=== PATIENT | female | born 1975 | race Caucasian/White ===

== ENCOUNTER 2023-06-02 03:00 | Inpatient (IN) | payer MEDICARE, SELFPAY ==
[2023-06-01 23:35] VITALS: BP 108/75
[2023-06-01 23:50] VITALS: BP 115/67
[2023-06-01 23:52] VITALS: BMI 33.9
[2023-06-02] VITALS (8 sets, daily range): BP systolic 97–158; BP diastolic 63–98; BMI 32.7
[2023-06-02 00:27] LABS: Glucose - Point of Care 120 mg/dl (70-99)
--- NOTE | 2023-06-02 00:37 | ED.GENMED ---
Addendum entered and electronically signed by Jamir Awad DO 06/02/23 02:14:
Will check CT scan to rule out obstruction and hydronephrosis
Original Note:
History of Present Illness
General
Chief Complaint: Weakness
Source: patient and family
Exam Limitations: clinical condition and altered mental status
Time Seen by Provider: 06/01/23 23:50
Nursing documentation reviewed up to this point in time: agreed with
Travel History
Have you had any contact with someone who has COVID-19?: No
Do you have any symptoms of coronavirus? Fever > 100 degrees, chills, cough, shortness of breath, sore throat, loss of taste or smell, muscle aches, or headache?: No
History of Present Illness
History of Present Illness:
48-year-old female with mental illness presents with progressive weakness decline in physical functioning, also decline in mental functioning, family states she has been lying in bed a lot recently, when she gets up she walks around like a zombie,
she sees a psychiatrist through telemetry visits through [facility] has been making adjustments to her medications
No drugs or alcohol, no potential for overdose per the family has been admitted to mental health facilities in the past year parents are elderly, patient lives with her parents sister is very involved in her care
Tonight she was complaining of some weakness fatigue to get her up give her a bath or to thump fell on her buttock in the shower
Has been drinking a lot of fluids lately family wonder if she could be diabetic
Past History
Past History
ED Past Medical History: Psychiatric and Other (anxiety)
ED Past Surgical History: None
Social History
Tobacco: Non-smoker
Alcohol: None
Drug: None
Personal: Single
Living: with family
Employment: Not employed
Family History
Family History: Diabetes
Phy Exam
Physical Exam
Physical Exam:
Physical Exam
General: 48-year-old female flat affect opens eyes to voice
Neck: Lips are slightly dry
Heart: Tachycardia
Lungs: no acute respiratory distress. clear bilaterally
Abdomen: Nontender
Neuro: alert and oriented. Lifts her arms above her head without difficulty able to lift her legs off the bed
Skin: no rash
Psychiatric: Flat affect cooperative not aggressive
Extremities: no edema
Course
Orders/Labs/Results
Orders:
Orders
06/01/23 23:53
Acetaminophen Urgent
Alcohol Urgent
Complete Blood Count/With Diff Urgent
Comprehensive Metabolic Panel Urgent
HCG, Serum Qualitative Screen Urgent
Salicylate Urgent
Urinalysis Reflex To Culture Urgent
Date Specimen was Collected: 06/01/23
Time Specimen was Collected: 23:53
Urine Drug Abuse Screen Urgent
Date Specimen was Collected: 06/01/23
Time Specimen was Collected: 23:53
Test Result ONCE
06/01/23 23:54
Electrocardiogram (*1) Urgent
Reason for Study: Tachycardia
EKG- Treatment ONCE
06/02/23 00:22
CT Cervical Spine W/o Iv Contr Urgent
Comment:
Reason For Exam: fall
CT Head W/o Iv Contrast Urgent
Comment:
Reason For Exam: fall
Cardiac Monitoring- Treatment ONCE
06/02/23 00:23
Straight cath- Treatment ONCE
06/02/23 00:26
CPK [Creatine Phosphokinase] Urgent
06/02/23 00:27
Ammonia Urgent
06/02/23 01:25
Urine Microscopic Reflex Cult Urgent
Urine Culture Urgent
ENE Source: U
Specimen Description:
Date Specimen was Collected: 06/01/23
Time Specimen was Collected: 23:53
06/02/23 01:52
CefTRIAXone [Rocephin] 1,000 mg IV NOW STA
06/02/23 02:00
Blood Culture Q30M
ENE Source: Blood/Venous
Specimen Description:
06/02/23 02:30
Blood Culture Q30M
ENE Source: Blood/Venous
Specimen Description:
Abnormal Lab Results
06/02/23 06/02/23 06/02/23
00:26 00:27 01:25
WBC 21.6 H 10^3/uL
(4.8-10.8)
Abs Immat Gran (auto) 0.4 H 10^3/uL
(0-0.05)
Absolute Neuts (auto) 17.7 H 10^3/uL
(1.4-6.5)
Absolute Monos (auto) 1.3 H 10^3/uL
(0.1-0.6)
Immature Gran % 1.6 H %
(0-0.5)
Neutrophils % 82.3 H %
(42.2-75.2)
Lymphocytes % 9.1 L %
(20.5-51.1)
Sodium 133 L mmol/L
(135-145)
Carbon Dioxide 19 L mmol/L
(22-30)
Creatinine 1.9 H mg/dL
(0.6-1.0)
Glucose 114 H mg/dl
(70-99)
AST 77 H U/L
(14-36)
Ammonia 33 H umol/L
(9-30)
Creatine Kinase 828 H U/L
(30-135)
Urine Ketones Trace A
(Negative)
Ur Occult Blood Reflex 4+ A
(Negative)
Urine Nitrite (Reflex) Positive A
(Negative)
Leukocyte Esterase Rfl 1+ A
(Negative)
Urine Albumin (Reflex) 2+ A
(Neg - Trace)
Salicylates < 1.0 L mg/dl
(2.0-20.0)
Acetaminophen < 10 L ug/ml
(10-30)
POC Glucose 120 H mg/dl
(70-99)
06/02/23 00:27
06/02/23 00:26
Vital Signs
Initial and Last Documented VS:
Initial Vital Signs
Temp Pulse Resp BP Pulse Ox
98.5 F 139 16 108/75 95
06/01/23 23:35 06/01/23 23:35 06/01/23 23:35 06/01/23 23:35 06/01/23 23:35
Last Documented Vital Signs
Temp Pulse Resp BP Pulse Ox
98.5 F 115 28 115/67 95
06/01/23 23:35 06/02/23 00:00 06/02/23 00:00 06/01/23 23:50 06/02/23 00:00
MDM/Problems Addressed
Differential Diagnosis Includes:
Primary psychiatric, overmedicated, electrolyte abnormality infection UTI occult trauma
MDM/Problems Addressed:
Weakness fatigue
Chronic conditions affecting care:
Mental illness
Acute Exacerbation and/or Progression of Chronic Illness:
Mental illness
*Radiology
Radiology exam reviewed: preliminary read by ED provider
*Pulse Oximetry
Patient hypoxic: no
*EKG
Interpreted by ED Provider?: Yes
Interpretation: abnormal
Comparison EKG: no comparison EKG present
Heart Rate: 110
Rate: tachycardiac
Rhythm: sinus
Ischemia: non-specific ST changes
*Motion Picture Equipment Machinist Interpretation
Rate: tachycardiac
Interpretation: abnormal
Heart Rate: 112
Rhythm: sinus
*Critical Care Note
Total Time (30-74mins, 75-104mins- exclusive of procedures): Not Applicable
Data Reviewed
Review of Other/Old Records Reveals: Labs
Source: patient and family
Patient Management
Social determinants of health affecting care: Living situation and Strong social support
Update Note
Update Note:
1:15 AM labs noted his leukocytosis, elevated creatinine bicarb is down a bit
Has tachycardia, intermittent but worsening fatigue, urinalysis is pending
Progressive mental illness certainly a possibility as her medications concern would be some infectious process
2 AM urinalysis noted culture pending will start ceftriaxone
ED Attending Note
-
Portions of this chart may have been created with voice recognition software.� Occasional wrong word or��sound alike� substitutions may have occurred due to the inherent limitations of voice recognition software.
Discharge Plan
Departure
Patient Disposition: Admit
Date of Disposition: 06/02/23
Time of Disposition: 01:52
Admit to: Med/Surg
Presentation/result/management discussed w/ accepting MD/DO: Hospitalist
Patient with high blood pressure during this ER visit?: No
Condition: Fair
Covid-19: Not Applicable
Discharge Problem:
UTI (urinary tract infection), RAYMUNDO (acute kidney injury), Leukocytosis
Prescriptions:
No Action
trazodone 50 mg tablet
50 mg PO HS
levonorgestrel-ethinyl estrad [Vienva] 0.1-20 mg-mcg tablet
1 tab PO DAILY
hydroxyzine HCl 25 mg tablet
25 - 50 mg PO BID PRN (Reason: anxiety)
paroxetine HCl 40 mg tablet
20 mg PO BID
buspirone 10 mg Tablet
10 mg PO TID
risperidone 1 mg Tablet
1 mg PO DAILY
Rx Instructions:
1 in the morning
risperidone 1 mg Tablet
1 mg PO DAILY
Rx Instructions:
1 in the afternoon
risperidone 1 mg Tablet
2 mg PO HS
Referrals:
NONE,* [Family Provider] -
Interventions
Interventions:
*Risk Screen - Suicide Last Done: 06/01/23 23:35
*General Assessment Last Done: 06/02/23 00:22
*Neglect/Abuse Screening Last Done: 06/01/23 23:35
*ED COVID-19 Vaccine History Last Done: 06/01/23 23:35
ED- Cardiac Assessment Last Done: 06/02/23 00:22
ED- Neurological Assessment Last Done: 06/02/23 00:22
ED- Pulmonary Assessment Last Done: 06/02/23 00:22
[2023-06-02 00:49] LABS: % Basophils 0.6 % (0-2); % Eosinophils 0.2 % (0-6); % Immature Granulocytes 1.6 % (0-0.5); % Lymphocytes 9.1 % (20.5-51.1); % Monocytes 6.2 % (1.7-9.3); % Neutrophils 82.3 % (42.2-75.2); Absolute Basophils 0.1 10^3/uL (0-0.2); Absolute Eosinophils 0.1 10^3/uL (0-0.7); Absolute Immature Granulocytes 0.4 10^3/uL (0-0.05); Absolute Monocytes 1.3 10^3/uL (0.1-0.6); Absolute Neutrophils 17.7 10^3/uL (1.4-6.5); Hematocrit 43.9 % (37.0-47.0); Hemoglobin 14.5 g/dL (12.0-16.0); Mean Corpuscular Hgb 28.2 pg (27.0-31.0); Mean Corpuscular Volume 85.2 fL (81.0-99.0); Nucleated Red Blood Cells % 0 %; Platelet Count 318 10^3/uL (130-400); Red Blood Cell Count 5.15 10^6/uL (4.20-5.40); Red Cell Dist. Width 13.4 % (11.5-14.5); White Blood Cell Count 21.6 10^3/uL (4.8-10.8)
[2023-06-02 00:50] LABS: Ammonia 33 umol/L (9-30)
[2023-06-02 01:07] LABS: ALT (SGPT) 34 U/L (0-35); AST (SGOT) 77 U/L (14-36); Acetaminophen < 10 ug/ml (10-30); Albumin 4.5 g/dl (3.5-5.0); Alkaline Phosphatase 70 U/L (38-126); Blood Urea Nitrogen 16 mg/dl (7-17); Calcium 9.8 mg/dl (8.4-10.2); Carbon Dioxide 19 mmol/L (22-30); Chloride 101 mmol/L (98-107); Creatine Phosphokinase 828 U/L (30-135); Estimated Creatinine Clearance 44 ml/min; Glucose 114 mg/dl (70-99); Potassium 3.9 mmol/L (3.5-5.1); Salicylate < 1.0 mg/dl (2.0-20.0); Sodium 133 mmol/L (135-145); Total Bilirubin 1.3 mg/dl (0.2-1.3); Total Protein 7.4 g/dl (6.3-8.2); eGFR 32.37
[2023-06-02 01:13] LABS: HCG, Serum Qualitative Screen Negative
[2023-06-02 01:14] LABS: Alcohol None Detected
[2023-06-02 01:39] LABS: Urine Albumin 2+ (Neg - Trace); Urine Bilirubin Negative (Negative); Urine Character Slightly Cloudy (Clear); Urine Color Yellow; Urine Glucose Negative (Negative); Urine Ketone Trace (Negative); Urine Leukocyte 1+ (Negative); Urine Nitrite Positive (Negative); Urine Occult Blood 4+ (Negative); Urine Specific Gravity 1.025 (<1.030); Urine Urobilinogen Negative (Neg - 1+)
[2023-06-02 01:59] LABS: Urine Red Blood Cell 0-2 /HPF (0-2)
[2023-06-02 02:00] LABS: Amphetamines Negative (Negative); Barbiturates Negative (Negative); Benzodiazepines Negative (Negative); Buprenorphine Negative (Negative); Cocaine Negative (Negative); Marijuana Negative (Negative); Methadone Negative (Negative); Methamphetamines Negative (Negative); Opiates Negative (Negative); Phencyclidine Negative (Negative); Tricyclic Antidepressants Negative (Negative); Urine Bacteria Many (Negative)
--- NOTE | 2023-06-02 02:13 | ED.GENMED ---
History of Present Illness
General
Chief Complaint: Weakness
Time Seen by Provider: 06/01/23 23:50
Travel History
Have you had any contact with someone who has COVID-19?: No
Do you have any symptoms of coronavirus? Fever > 100 degrees, chills, cough, shortness of breath, sore throat, loss of taste or smell, muscle aches, or headache?: No
Past History
Past History
ED Past Medical History: Psychiatric and Other (anxiety)
ED Past Surgical History: None
Social History
Tobacco: Non-smoker
Alcohol: None
Drug: None
Personal: Single
Living: with family
Employment: Not employed
Family History
Family History: Diabetes
Course
Orders/Labs/Results
Orders:
Orders
06/01/23 23:53
Acetaminophen Urgent
Alcohol Urgent
Complete Blood Count/With Diff Urgent
Comprehensive Metabolic Panel Urgent
HCG, Serum Qualitative Screen Urgent
Salicylate Urgent
Urinalysis Reflex To Culture Urgent
Date Specimen was Collected: 06/01/23
Time Specimen was Collected: 23:53
Urine Drug Abuse Screen Urgent
Date Specimen was Collected: 06/01/23
Time Specimen was Collected: 23:53
Test Result ONCE
06/01/23 23:54
Electrocardiogram (*1) Urgent
Reason for Study: Tachycardia
EKG- Treatment ONCE
06/02/23 00:22
CT Cervical Spine W/o Iv Contr Urgent
Comment:
Reason For Exam: fall
CT Head W/o Iv Contrast Urgent
Comment:
Reason For Exam: fall
Cardiac Monitoring- Treatment ONCE
06/02/23 00:23
Straight cath- Treatment ONCE
06/02/23 00:26
CPK [Creatine Phosphokinase] Urgent
06/02/23 00:27
Ammonia Urgent
06/02/23 01:25
Urine Microscopic Reflex Cult Urgent
Urine Culture Urgent
ENE Source: U
Specimen Description:
Date Specimen was Collected: 06/01/23
Time Specimen was Collected: 23:53
06/02/23 01:52
CefTRIAXone [Rocephin] 1,000 mg IV NOW STA
06/02/23 02:00
Blood Culture Q30M
ENE Source: Blood/Venous
Specimen Description:
06/02/23 02:12
CT Abd/pel Without Iv Or Oral Urgent
Comment:
Reason For Exam: uti, raymundo, (sorry for 2 trips)
06/02/23 02:30
Blood Culture Q30M
ENE Source: Blood/Venous
Specimen Description:
Abnormal Lab Results
06/02/23 06/02/23 06/02/23
00:26 00:27 01:25
WBC 21.6 H 10^3/uL
(4.8-10.8)
Abs Immat Gran (auto) 0.4 H 10^3/uL
(0-0.05)
Absolute Neuts (auto) 17.7 H 10^3/uL
(1.4-6.5)
Absolute Monos (auto) 1.3 H 10^3/uL
(0.1-0.6)
Immature Gran % 1.6 H %
(0-0.5)
Neutrophils % 82.3 H %
(42.2-75.2)
Lymphocytes % 9.1 L %
(20.5-51.1)
Sodium 133 L mmol/L
(135-145)
Carbon Dioxide 19 L mmol/L
(22-30)
Creatinine 1.9 H mg/dL
(0.6-1.0)
Glucose 114 H mg/dl
(70-99)
AST 77 H U/L
(14-36)
Ammonia 33 H umol/L
(9-30)
Creatine Kinase 828 H U/L
(30-135)
Urine Ketones Trace A
(Negative)
Ur Occult Blood Reflex 4+ A
(Negative)
Urine Nitrite (Reflex) Positive A
(Negative)
Leukocyte Esterase Rfl 1+ A
(Negative)
Urine Bacteria (Reflex) Many A
(Negative)
Urine Albumin (Reflex) 2+ A
(Neg - Trace)
Salicylates < 1.0 L mg/dl
(2.0-20.0)
Acetaminophen < 10 L ug/ml
(10-30)
POC Glucose 120 H mg/dl
(70-99)
06/02/23 00:27
06/02/23 00:26
Vital Signs
Initial and Last Documented VS:
Initial Vital Signs
Temp Pulse Resp BP Pulse Ox
98.5 F 139 16 108/75 95
06/01/23 23:35 06/01/23 23:35 06/01/23 23:35 06/01/23 23:35 06/01/23 23:35
Last Documented Vital Signs
Temp Pulse Resp BP Pulse Ox
98.5 F 115 28 115/67 95
06/01/23 23:35 06/02/23 00:00 06/02/23 00:00 06/01/23 23:50 06/02/23 00:00
Update Note
Update Note:
Update labs noted urine noted will start on antibiotics check blood culture no history of kidney stones family states she has been a bit unsettled lately possibly had some sweats earlier tonight after an argument does have renal sufficiency will
check CT scan without contrast rule out hydro or obstruction
ED Attending Note
-
Portions of this chart may have been created with voice recognition software.� Occasional wrong word or��sound alike� substitutions may have occurred due to the inherent limitations of voice recognition software.
Discharge Plan
Departure
Patient Disposition: Admit
Date of Disposition: 06/02/23
Time of Disposition: 01:52
Admit to: Med/Surg
Presentation/result/management discussed w/ accepting MD/DO: Hospitalist
Patient with high blood pressure during this ER visit?: No
Condition: Fair
Covid-19: Not Applicable
Discharge Problem:
UTI (urinary tract infection), RAYMUNDO (acute kidney injury), Leukocytosis
Prescriptions:
No Action
trazodone 50 mg tablet
50 mg PO HS
levonorgestrel-ethinyl estrad [Vienva] 0.1-20 mg-mcg tablet
1 tab PO DAILY
hydroxyzine HCl 25 mg tablet
25 - 50 mg PO BID PRN (Reason: anxiety)
paroxetine HCl 40 mg tablet
20 mg PO BID
buspirone 10 mg Tablet
10 mg PO TID
risperidone 1 mg Tablet
1 mg PO DAILY
Rx Instructions:
1 in the morning
risperidone 1 mg Tablet
1 mg PO DAILY
Rx Instructions:
1 in the afternoon
risperidone 1 mg Tablet
2 mg PO HS
Referrals:
NONE,* [Family Provider] -
Interventions
Interventions:
*Risk Screen - Suicide Last Done: 06/01/23 23:35
*General Assessment Last Done: 06/02/23 00:22
*Neglect/Abuse Screening Last Done: 06/01/23 23:35
*ED COVID-19 Vaccine History Last Done: 06/01/23 23:35
ED- Cardiac Assessment Last Done: 06/02/23 00:22
ED- Neurological Assessment Last Done: 06/02/23 00:22
ED- Pulmonary Assessment Last Done: 06/02/23 00:22
--- NOTE | 2023-06-02 02:26 | HPS.HSE ---
Family Physician
-
Family Physician: * NONE
Chief Complaint
-
physically and mentally declining per family
History of Present Illness
48F lives with parents HX anxiety, known to [facility] [place].
Reports gradually decline mentally and f/u psych via tele medicine and Psych Meds has been modified.
Per family mostly lying in, drinking lots of fluid and uninterested.
No drugs or alcohol, no potential for overdose per the family has been admitted to mental health facilities in the past yea
ROS:
Progressive weakness , fatigue pr note.
Tonight get her up to give her a bath or to thump fell on her buttock in the shower
labs noted for RAYMUNDO, elevated CPKs abd abn UA
Medical History
Past Medical History
Past Medical History: Reports Psychiatric (anxiety )
Past Surgical History: Reports None
Social History
Tobacco: Non-smoker
Alcohol: None
Personal: Single
Living: With Family
Family History
Family History: Not pertinent
Allergies / Home Medications
Allergies reflects when Allergies were last updated in [facility].
Home Medications with original date entered in [facility]
Allergy/Medication List:
Allergies
Allergy/AdvReac Type Severity Reaction Status Date / Time
No Known Allergies Allergy Verified 06/01/23 23:35
Home Medications
hydroxyzine HCl 25 mg tablet 25 - 50 mg PO BID PRN anxiety 11/09/22
levonorgestrel-ethinyl estradiol 0.1 mg-20 mcg tablet (Vienva) 1 tab PO DAILY 11/09/22
paroxetine HCl 40 mg tablet 20 mg PO BID 11/09/22
trazodone 50 mg tablet 50 mg PO HS 11/09/22
buspirone 10 mg tablet 10 mg PO TID 06/02/23
risperidone 1 mg tablet 1 mg PO DAILY 06/02/23
risperidone 1 mg tablet 1 mg PO DAILY 06/02/23
risperidone 1 mg tablet 2 mg PO HS 06/02/23
Review of Systems
-
Constitutional: Reports No Symptoms
EENT: Reports No Symptoms
Respiratory: Reports No Symptoms
Cardiac: Reports No Symptoms
Abdomen/GI: Reports No Symptoms
: Reports No Symptoms
Musculoskeletal: Reports No Symptoms
Skin: Reports No Symptoms
Neurological: Reports Weakness
Endocrine: Reports No Symptoms
Hematologic/Lymphatic: Reports No Symptoms
Psych: Reports Depression and Anxiety
Physical Exam
Vital Signs
Vital Signs
Temp Pulse Resp BP Pulse Ox
98.5 F 100 26 115/67 96
06/01/23 23:35 06/02/23 02:15 06/02/23 02:15 06/01/23 23:50 06/02/23 00:30
Physical Exam
General: Well Developed and No Apparent Distress
HEENT: NormoCephalic
Respiratory: Clear
Cardiac: S1/S2, Regular Rhythm and Tachycardia
Breast: Deferred by me
GI: Soft, Non Tender, Non Distended and Normal Bowel Sounds
Rectal: Deferred by Provider
Genito-urinary: Deferred by me
Musculoskeletal: No Edema
Skin: Warm
Neuro: Awake and Other (unable to lift legs off the bed, can lift both arms , fine tremors of hands )
Psych: Other (flat affect opens eyes to voice)
Laboratory Results
-
06/02/23 00:27
06/02/23 00:26
Laboratory Results
Total Bilirubin 1.3 mg/dl (0.2-1.3) 06/02/23 00:26
AST 77 U/L (14-36) H 06/02/23 00:26
ALT 34 U/L (0-35) 06/02/23 00:26
Alkaline Phosphatase 70 U/L (38-126) 06/02/23 00:26
Data Reviewed
-
Lab Data: Labs Reviewed by me
Impression/Plan
-
Reviewed VS: afebrile , tachycardic, marginally hypotensive POx 95 on RA
Data
WCC 21
Na 133
CO2 19
Cr 1.9 - was 1.1 on 11/09/22
AST 77 ALT 44
NH3 33
CK 828
NEG HCG
UA POS Nitrites POS LE WCC 6-10
BCX sent
UCx sent
NEG salicylates
NEG Acetaminophen
NEG ETOH
Pending HCT report
Pending Cx spien CT report
ASSESSMENT & PLAN
RAYMUNDO suspect pre renal - not retaining per straight cath for UA
Tachycardic and marginally hypotensive
Progressive weakness out of proportion with metabolic abnormailties
Abnormal UA - possible UTI
Mild Rhabdo likley due to muscle contusion s/p fall
- IVF and trend Cr
- Trend CPKs
- Empiric IV CFTZ
- IVF
- f/u UCx, BCx
- Trend CPKs
- Trend BP
Progressive weakness Milton > UEx
- Unable to lift legs off the bed, can lift both arms
- await HCt and Cx spine CT
Significant acute psych issues suspected like major depressive disorder
Denied suicidal thoughts and ideation
has appetite - asking for food
Of note; Sister is very involved in patient care - she is at bed side
- Psych consult
DVT Px: SCD
Code: Full code
IP MS
[2023-06-02] MEDS: ROCEPHIN 1000 MG IV (04:09)
[2023-06-02] MEDS: STERILE WATER FOR INJECTION 10 ML IV (04:09)
[2023-06-02] MEDS: NSS 1000 IV ×3 (04:18→19:14)
[2023-06-02 06:43] LABS: % Basophils 0.5 % (0-2); % Eosinophils 0.5 % (0-6); % Immature Granulocytes 0.3 % (0-0.5); % Lymphocytes 14.2 % (20.5-51.1); % Neutrophils 77.5 % (42.2-75.2); Absolute Basophils 0.1 10^3/uL (0-0.2); Absolute Eosinophils 0.1 10^3/uL (0-0.7); Absolute Immature Granulocytes 0.1 10^3/uL (0-0.05); Absolute Lymphocytes 2.1 10^3/uL (1.2-3.4); Absolute Neutrophils 11.3 10^3/uL (1.4-6.5); Hemoglobin 13.5 g/dL (12.0-16.0); Mean Corp Hgb Conc. 33.8 g/dL (33.0-37.0); Mean Corpuscular Hgb 28.4 pg (27.0-31.0); Mean Corpuscular Volume 84.2 fL (81.0-99.0); Nucleated Red Blood Cells % 0 %; Platelet Count 283 10^3/uL (130-400); Red Blood Cell Count 4.75 10^6/uL (4.20-5.40); Red Cell Dist. Width 13.4 % (11.5-14.5); White Blood Cell Count 14.6 10^3/uL (4.8-10.8)
[2023-06-02 07:17] LABS: Blood Urea Nitrogen 17 mg/dl (7-17); Calcium 9.3 mg/dl (8.4-10.2); Carbon Dioxide 25 mmol/L (22-30); Chloride 103 mmol/L (98-107); Estimated Creatinine Clearance 49 ml/min; Glucose 99 mg/dl (70-99); Potassium 3.7 mmol/L (3.5-5.1); Sodium 134 mmol/L (135-145); eGFR 36.99
[2023-06-02 07:41] LABS: TSH 2.56 uIU/ml (0.47-4.68)
[2023-06-02 07:49] LABS: Creatine Phosphokinase 15494 U/L (30-135)
--- NOTE | 2023-06-02 09:09 | PHANOTE ---
06/02/2023, med rec tech, pt. does not know their own meds. and state that their father manages them; called father ([phone]) and was unable to reach him; used pharmacy fill data to compile a list of pt.'s meds.; there are no current [facility]
records for pt.; could not confirm meds.
[2023-06-02] MEDS: RISPERDAL 1 MG PO (09:52)
[2023-06-02] MEDS: BUSPAR 10 MG PO (09:52)
[2023-06-02] MEDS: PAXIL 20 MG PO (09:52)
--- NOTE | 2023-06-02 10:06 | W.PN.HOSP.TC ---
Today's Communication/Plan
-
stop antibiotics
increase rate IVF, trend CK; reassuring creatinine better this AM
Psych consult
awaiting med rec
Assessment / Plan
Assessment / Plan
HEAD CT
IMPRESSION:
Normal.
CERVICAL SPINE CT
IMPRESSION:
1.). No acute abnormalities.
2).There is degenerative disc disease at C4-5 with moderate loss of disc stature, mild concentric bulging of the intervertebral disc and degenerative spurring of the endplates posteriorly associated with moderate broad-based impingement upon the
anterior aspect of the thecal sac with moderate cord impingement and mild right C5 foraminal stenosis.
3). There is degenerative disc disease at C5-6 with moderate loss of disc stature, mild concentric bulging of the intervertebral disc and mild concentric bulging of the intervertebral disc which is associated with moderate broad-based impingement
upon the anterior aspect of the thecal sac and cervical cord and mild bilateral C6 foraminal stenosis
CT A/P
IMPRESSION:
1). There is no evidence of acute pathology in the abdomen or pelvis
There are no obstructing renal or ureteral calculi.
There is no hydronephrosis or hydroureter.
2). Cholelithiasis
3). Diverticuli are present in the colon with no CT evidence of diverticulitis
ASSESSMENT & PLAN
Ms. Kathy Chang is a 48 yo woman with hx significant psychiatric hx, with admissions to mental health facilities over past year brought in by family for increasing decline in physical and mental functioning. She was found to have RAYMUNDO.
RAYMUNDO suspect�pre renal - not retaining per straight cath for� UA; also found to have rhabdo
Progressive weakness out of proportion with metabolic abnormalities
Abnormal UA - WBC not elevated, not suspicious of infection
Rhabdo likley due to muscle contusion s/p fall
- continue aggressive IVF
- creatinine improved this AM; monitor renal function closely
- Trend CPKs
- stop abx
Progressive weakness� Milton > UEx
-imaging without acute abnormalities
Significant acute psych issues suspected� like major depressive disorder
Denied suicidal thoughts and ideation
has appetite - asking for food
Of note; Sister is very involved in patient care
- Psych consult
*awaiting med rec
DVT Px: SCD
Code: Full code
IP MS
Anticipated Discharge: 24 - 48 hours
Subjective/Interval History
-
Date of Service: June 02, 2023
states she is hungry
states she was down for at least 10 minutes post fall
Objective Data
-
Labs:
Laboratory Results
06/02/23 06/02/23 06/02/23
00:26 00:27 06:02
WBC 21.6 H 14.6 H
Hgb 14.5 13.5
Hct 43.9 40.0
Plt Count 318 283
Sodium 133 L 134 L
Potassium 3.9 3.7
Chloride 101 103
Carbon Dioxide 19 L 25
BUN 16 17
Creatinine 1.9 H 1.7 H
Glucose 114 H 99
Calcium 9.8 9.3
Total Bilirubin 1.3
AST 77 H
ALT 34
Alkaline Phosphatase 70
Vital Signs:
Vital Signs
Temp Pulse Resp BP Pulse Ox
99.0 F 74 18 155/75 94
06/02/23 08:35 06/02/23 08:35 06/02/23 08:35 06/02/23 08:35 06/02/23 08:35
Review of Systems
-
History Source: Patient
All other systems: Reviewed and negative
Physical Exam
-
General: No Apparent Distress
HEENT: PERRLA
Respiratory: Clear to Auscultation; Negative Wheezes
Cardiac: Regular Rhythm and S1/S2
GI: Soft and Nontender
Musculoskeletal: No Edema
Skin: Warm and Dry; Negative Rash
Neuro: AO x 3
Psych: Calm and Other (flat affect)
Data Reviewed
-
Diagnostic Radiology: Report Reviewed by me
Labs: Labs Reviewed by me
--- NOTE | 2023-06-02 10:15 | PTCARENOTE ---
pt wakes to name. ox3 forgetful. lethargic. one person walk along to bathroom. breath sounds clear. heart tone regular. bruises noted over legs and right hip.
--- NOTE | 2023-06-02 10:49 | PTCARENOTE ---
pt restless getting out of bed on her own after instructed to call. pt now in chair will stand up on her own states she fells better standing. stable on feet but asked not to walk around room due to her history of falls. pt states she
understands. will place med sitter in room.
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
[2023-06-02] MEDS: NSS 500 IV (11:25)
[2023-06-02] MEDS: COGENTIN 0.5 MG PO ×2 (11:37→20:25)
[2023-06-02] MEDS: PAXIL 10 MG PO (11:37)
[2023-06-02] MEDS: ATIVAN 0.5 MG PO ×2 (11:37→21:37)
--- NOTE | 2023-06-02 16:04 | PTCARENOTE ---
transferred to room with all belongings
[2023-06-02] MEDS: BUSPAR 5 MG PO ×2 (16:17→21:37)
--- NOTE | 2023-06-02 17:32 | PTCARENOTE ---
Received pt from ED hold. Pt awake, alert and oriented x3. Forgetful, Anxious, Very restless, fidgety in bed continues to ask to be pulled up in bed when bed is in highest position. Pt OOBTC and appears more comfortable. Pt with mild diaphoresis,
fan provided, c/o feeling hot. Pt unsteady on feet, ambulates to bathroom with assistance, bed alarm and med sitter in place. Pt VSS 99% on RA, Afebrile. Pt able to follow commands and re-directable at this time, impulsive with repositioning,
repetitive with certain tasks. Pt oriented to room, call green within reach, plan of care ongoing.
--- NOTE | 2023-06-02 19:24 | PTCARENOTE ---
Family at bedside attempted to complete med rec. Family unsure of medications due to doses ' constantly changing' Did not have current list with them at this time. Encouraged them to bring updated list tomorrow. Sister Fidelia recommended calling
[facility] who would have the most updated list.
[2023-06-02] MEDS: HEPARIN 5000 UNITS SC (20:23)
[2023-06-02] MEDS: DESYREL 25 MG PO (21:36)
--- NOTE | 2023-06-02 23:15 | PTCARENOTE ---
Report called to [facility]. [facility]
[2023-06-03] MEDS: NSS 1000 IV ×3 (01:55→18:34)
[2023-06-03 03:41] VITALS: BMI 32.7
--- NOTE | 2023-06-03 06:10 | PTCARENOTE ---
@0600; Pt requires frequent redirection,with bed alarm and med sitter.Pt is restless and does attempt to get OOB or out of chair with alarms.Med sitter is helpful with pt's movements before she gets to the end of the bed and then tries to stand.
[2023-06-03 06:51] LABS: Blood Urea Nitrogen 12 mg/dl (7-17); Calcium 8.2 mg/dl (8.4-10.2); Carbon Dioxide 27 mmol/L (22-30); Chloride 108 mmol/L (98-107); Estimated Creatinine Clearance 68 ml/min; Glucose 103 mg/dl (70-99); Sodium 136 mmol/L (135-145); eGFR 56.19
[2023-06-03 07:00] VITALS: BP 149/87
[2023-06-03 07:02] LABS: Creatine Phosphokinase 7895 U/L (30-135)
[2023-06-03] MEDS: COGENTIN 0.5 MG PO ×4 (09:12→21:02)
[2023-06-03] MEDS: PAXIL 30 MG PO (09:12)
[2023-06-03] MEDS: HEPARIN 5000 UNITS SC ×2 (09:13→21:01)
[2023-06-03] MEDS: ATIVAN 0.5 MG PO ×3 (09:13→21:02)
[2023-06-03] MEDS: BUSPAR 5 MG PO ×3 (09:13→21:01)
--- NOTE | 2023-06-03 10:00 | W.PN.HOSP.TC ---
Addendum entered and electronically signed by Rima Peck MD 06/03/23 13:51:
both traumatic and nontraumatic rhabdomyolysis
IVF as below
Original Note:
Today's Communication/Plan
-
continue IVF for rhabdo
appreciate psychiatry consult
F/U final recs from CM and Psychiatry
Assessment / Plan
Assessment / Plan
HEAD CT
IMPRESSION:
Normal.
CERVICAL SPINE CT
IMPRESSION:
1.). No acute abnormalities.
2).There is degenerative disc disease at C4-5 with moderate loss of disc stature, mild concentric bulging of the intervertebral disc and degenerative spurring of the endplates posteriorly associated with moderate broad-based impingement upon the
anterior aspect of the thecal sac with moderate cord impingement and mild right C5 foraminal stenosis.
3). There is degenerative disc disease at C5-6 with moderate loss of disc stature, mild concentric bulging of the intervertebral disc and mild concentric bulging of the intervertebral disc which is associated with moderate broad-based impingement
upon the anterior aspect of the thecal sac and cervical cord and mild bilateral C6 foraminal stenosis
CT A/P
IMPRESSION:
1). There is no evidence of acute pathology in the abdomen or pelvis
There are no obstructing renal or ureteral calculi.
There is no hydronephrosis or hydroureter.
2). Cholelithiasis
3). Diverticuli are present in the colon with no CT evidence of diverticulitis
ASSESSMENT & PLAN
Ms. Kathy Chang is a 48 yo woman with hx significant psychiatric hx, with admissions to mental health facilities over past year brought in by family for increasing decline in physical and mental functioning. She was found to have RAYMUNDO.
RAYMUNDO suspect�pre renal - not retaining per straight cath for� UA; also found to have rhabdo
Progressive weakness out of proportion with metabolic abnormalities
Abnormal UA - WBC not elevated, not suspicious of infection
Rhabdo likley due to muscle contusion s/p fall; sister reports patient lays in bed all day
- continue IVF - creatinine improving this AM, OK to decrease rate
- Trend CPKs - declining
- stop abx
Progressive weakness� [place] > UEx
-imaging without acute abnormalities
Significant acute psych issues suspected� like major depressive disorder
Denied suicidal thoughts and ideation
has appetite - asking for food
Of note; Sister is very involved in patient care
-Psych consult appreciated
-meds adjusted (see note 06/01)
DVT Px: SCD
Code: Full code
IP MS
Anticipated Discharge: 24 - 48 hours
Subjective/Interval History
-
Date of Service: June 03, 2023
she is focused on wanting to go home
Objective Data
-
Labs:
Laboratory Results
06/03/23
05:40
Sodium 136
Potassium 4.0
Chloride 108 H
Carbon Dioxide 27
BUN 12
Creatinine 1.2 H
Glucose 103 H
Calcium 8.2 L
Vital Signs:
Vital Signs
Temp Pulse Resp BP Pulse Ox
98.3 F 56 18 149/87 98
06/03/23 07:00 06/03/23 07:00 06/03/23 07:00 06/03/23 07:00 06/03/23 07:00
I&O
06/02/23 06/03/23 06/04/23
06:59 06:59 06:59
Intake Total 5880 / 5880
Balance 5880 / 5880
Review of Systems
-
History Source: Patient
All other systems: Reviewed and negative
Physical Exam
-
General: No Apparent Distress
HEENT: PERRLA
Respiratory: Clear to Auscultation; Negative Wheezes
Cardiac: Regular Rhythm and S1/S2
GI: Soft and Nontender
Musculoskeletal: No Edema
Skin: Warm and Dry; Negative Rash
Neuro: AO x 3
Psych: Calm and Other (flat affect)
Data Reviewed
-
Diagnostic Radiology: Report Reviewed by me
Labs: Labs Reviewed by me
--- NOTE | 2023-06-03 10:36 | PN.CDI ---
CDI
- -
CDI:
Physician Documentation Request
Admit Date: 06/02/23 03:00
Dear Doctor Cisco,
Clinical Indicators:
Patient admitted with RAYMUNDO.
06/01 PN, 'Mild Rhabdo likely due to muscle contusion s/p fall... states she was down for at least 10 minutes post fall'
CPK trend:
06/02/23 06/02/23 06/03/23
00:26 06:02 05:40
Creatine Kinase 828 H 46226 H D 7895 H D
Based on the above, please clarify the type of rhabdomyolysis being treated/monitored:
Non traumatic rhabdomyolysis
Traumatic rhabdomyolysis
Other, please specify
Use of terms such as suspected, likely, concern for, or probable (associated with a specific diagnosis that is being evaluated, monitored, or treated as if it exists) are acceptable and can be coded in the inpatient setting, when documented at the
time of discharge.
Thank you,
PRASHANTH Frederick RN
CDI Specialist
available via tiger text
Please use your independent medical judgment in providing your response.
--- NOTE | 2023-06-03 10:46 | PN.CDI ---
CDI
- -
CDI:
Physician Documentation Request
Admit Date: 06/02/23 03:00
Dear Doctor Cisco,
Clinical Indicators:
Patient admitted with RAYMUNDO.
NSS IV bolus + maintenance given.
Sodium levels:
06/02/23 06/02/23
00:26 06:02
Sodium 133 L 134 L
Based on the above, could you clarify in the progress notes, the appropriate diagnosis, if significant, that supports the above abnormalities and additional evaluation, monitoring and/or treatment rendered:
Hyponatremia
Abnormal lab values, clinically insignificant
Other, please specify
Use of terms such as suspected, likely, concern for, or probable (associated with a specific diagnosis that is being evaluated, monitored, or treated as if it exists) are acceptable and can be coded in the inpatient setting, when documented at the
time of discharge.
Thank you,
PRASHANTH Frederick RN
CDI Specialist
available via tiger text
Please use your independent medical judgment in providing your response.
--- NOTE | 2023-06-03 11:36 | W.PN.UPDATE ---
Addendum entered and electronically signed by Cleopatra Damon MD 06/03/23 15:13:
neuro is to see patient but for now will increase cogentin to 0.5 mg qid as cogwheeling is considerable and persists. it can take some weeks to resolve completely.
Original Note:
Update Note
Progress Note Update
patient seen chart reviewed. spoke with nursing. the patient continues with signficiant cogwheeling rigidity. akathisia also apparent even while lying in bed. some of the movements noted were rather writhing in quality and some lip movements were
noted as well ?tardive dyskinesia. have asked neuro to see her. what i would like neuro to address is what is the best regimen to effect improvement in eps with as little anticholinergic side effect as possible. she has taken medications with
significant anticholinergicity and is still on paxil which i am going to reduce to 20 mg. from the history i have gathered while she does have ocd type sx the paxil has not been helping and from what sister tells me she is actually worse in recent
weeks. i shared with her what sister told me and she affirmed that this is true. in my opinion patient should consider in patient psych or at the very least a partial hospital but currently she is refusing. i don't think she is commitable. the
[facility] would be another option. psych will continue to follow await neuro recommendations for eps
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
[2023-06-03 12:30] VITALS: BP 143/89; PULSE 79; O2SAT 96
[2023-06-03 14:28] LABS: Magnesium 2.1 mg/dl (1.6-2.3)
[2023-06-03 15:00] VITALS: BP 143/89
[2023-06-03 15:18] LABS: Vitamin B12 310 pg/ml (239-931)
--- NOTE | 2023-06-03 16:02 | CM ---
CM reviewed chart, spoke with patients sister Fidelia [phone] to conduct initial assessment. Per Fidelia, patient lives with her elderly parents in a two story home. Patient does not use any DME, does not have a PCP, pharmacy used is [facility] in
[place]. Patient has no history with VN or SNF. Fidelia reports her sister has been to two inpatient [facility] hospitals in 2022, [place] and [place]. Fidelia believes her sister may be on the spectrum but nothing was ever talked about when she was a
child. CM discussed PT recommendation of SNF, Fidelia feels as though this would be beneficial for her sister and is looking for any help she can get. Fidelia reports concern for her parents living and caring for her sister as they are elderly, and if she
was not there when her sister fell, her parents would not have been able to lift her up. CM will continue to follow for discharge planning needs.
Plan; SNF pending accepting facility, pending further medical eval/recommendations.
[2023-06-03] MEDS: DESYREL 25 MG PO (21:01)
[2023-06-03 23:00] VITALS: BP 133/76
--- NOTE | 2023-06-04 04:50 | PTCARENOTE ---
Pt IV infiltrated. Pt right hand now swollen +2 pitting edema. IV was removed and a new IV was placed in the left arm VOLUMETRIC WEIGHER aware no further orders.
[2023-06-04 06:24] LABS: % Basophils 0.8 % (0-2); % Eosinophils 3.7 % (0-6); % Immature Granulocytes 0.3 % (0-0.5); % Lymphocytes 28.4 % (20.5-51.1); % Neutrophils 59.8 % (42.2-75.2); Absolute Basophils 0.1 10^3/uL (0-0.2); Absolute Eosinophils 0.3 10^3/uL (0-0.7); Absolute Lymphocytes 2.6 10^3/uL (1.2-3.4); Absolute Monocytes 0.6 10^3/uL (0.1-0.6); Absolute Neutrophils 5.5 10^3/uL (1.4-6.5); Hematocrit 37.8 % (37.0-47.0); Hemoglobin 12.6 g/dL (12.0-16.0); Mean Corp Hgb Conc. 33.3 g/dL (33.0-37.0); Mean Corpuscular Hgb 28.3 pg (27.0-31.0); Mean Corpuscular Volume 84.9 fL (81.0-99.0); Mean Platelet Volume 10.1 fL (7.4-10.4); Nucleated Red Blood Cells % 0 %; Platelet Count 232 10^3/uL (130-400); Red Blood Cell Count 4.45 10^6/uL (4.20-5.40); Red Cell Dist. Width 13.5 % (11.5-14.5); White Blood Cell Count 9.1 10^3/uL (4.8-10.8)
[2023-06-04 06:40] LABS: Blood Urea Nitrogen 12 mg/dl (7-17); Calcium 8.5 mg/dl (8.4-10.2); Carbon Dioxide 26 mmol/L (22-30); Chloride 106 mmol/L (98-107); Estimated Creatinine Clearance 75 ml/min; Glucose 88 mg/dl (70-99); Potassium 4.3 mmol/L (3.5-5.1); Sodium 135 mmol/L (135-145); eGFR > 60.00
[2023-06-04] MEDS: NSS 1000 IV ×2 (06:40→18:24)
[2023-06-04 06:47] LABS: Creatine Phosphokinase 4482 U/L (30-135)
[2023-06-04 07:00] VITALS: BP 151/88
[2023-06-04] MEDS: ATIVAN 0.5 MG PO ×3 (09:23→21:10)
[2023-06-04] MEDS: COGENTIN 0.5 MG PO ×4 (09:24→21:10)
[2023-06-04] MEDS: HEPARIN 5000 UNITS SC ×2 (09:24→21:10)
[2023-06-04] MEDS: PAXIL 20 MG PO (09:24)
[2023-06-04] MEDS: BUSPAR 5 MG PO ×3 (09:24→21:10)
[2023-06-04 10:30] VITALS: BMI 33.5
--- NOTE | 2023-06-04 10:45 | W.PN.HOSP.TC ---
Today's Communication/Plan
-
MRI
med adjustments as below
IVF x 1 more day
Assessment / Plan
Assessment / Plan
HEAD CT
IMPRESSION:
Normal.
CERVICAL SPINE CT
IMPRESSION:
1.). No acute abnormalities.
2).There is degenerative disc disease at C4-5 with moderate loss of disc stature, mild concentric bulging of the intervertebral disc and degenerative spurring of the endplates posteriorly associated with moderate broad-based impingement upon the
anterior aspect of the thecal sac with moderate cord impingement and mild right C5 foraminal stenosis.
3). There is degenerative disc disease at C5-6 with moderate loss of disc stature, mild concentric bulging of the intervertebral disc and mild concentric bulging of the intervertebral disc which is associated with moderate broad-based impingement
upon the anterior aspect of the thecal sac and cervical cord and mild bilateral C6 foraminal stenosis
CT A/P
IMPRESSION:
1). There is no evidence of acute pathology in the abdomen or pelvis
There are no obstructing renal or ureteral calculi.
There is no hydronephrosis or hydroureter.
2). Cholelithiasis
3). Diverticuli are present in the colon with no CT evidence of diverticulitis
ASSESSMENT & PLAN
Ms. Kathy Chang is a 48 yo woman with hx significant psychiatric hx, with admissions to mental health facilities over past year brought in by family for increasing decline in physical and mental functioning. She was found to have RAYMUNDO.
RAYMUNDO suspect�pre renal - not retaining per straight cath for� UA; also found to have rhabdo
Progressive weakness out of proportion with metabolic abnormalities
Abnormal UA - WBC not elevated, not suspicious of infection
Rhabdo likley due to muscle contusion s/p fall; sister reports patient lays in bed all day
- continue IVF - creatinine now at baseline, likely continue one more day
- Trend CPKs - declining
- stop abx - UA with insignificant WBC; urine with asymptomatic bacteriuria
Progressive weakness� [place] > UEx
-imaging without acute abnormalities
Weakness
Multifactorial encephalopathy
movement disordered on exam likely drug induced
Significant acute psych issues suspected� like major depressive disorder
Denied suicidal thoughts and ideation
-Psych consult appreciated
-meds adjusted (see note 06/01) Risperidone stopped; Buspirone decreased, Paxil decreased, Trazodone dosing decreased
-Cogentin initiated
-neurology consulted, MRI ordered
Low B12
-replete
DVT Px: SCD
Code: Full code
IP MS
Anticipated Discharge: 24 - 48 hours
Subjective/Interval History
-
Date of Service: June 04, 2023
patient stating she continues to feel weak
asking when she can go home
Objective Data
-
Labs:
Laboratory Results
06/04/23
05:52
WBC 9.1
Hgb 12.6
Hct 37.8
Plt Count 232
Sodium 135
Potassium 4.3
Chloride 106
Carbon Dioxide 26
BUN 12
Creatinine 1.1 H
Glucose 88
Calcium 8.5
Vital Signs:
Vital Signs
Temp Pulse Resp BP Pulse Ox
98.4 F 55 20 151/88 98
06/04/23 07:00 06/04/23 07:00 06/04/23 07:00 06/04/23 07:00 06/04/23 07:00
I&O
06/03/23 06/04/23 06/05/23
06:59 06:59 06:59
Intake Total 5880 / 5880 3880 / 3880
Balance 5880 / 5880 3880 / 3880
Review of Systems
-
History Source: Patient
All other systems: Reviewed and negative
Physical Exam
-
General: No Apparent Distress
HEENT: PERRLA
Respiratory: Clear to Auscultation; Negative Wheezes
Cardiac: Regular Rhythm and S1/S2
GI: Soft and Nontender
Musculoskeletal: No Edema
Skin: Warm and Dry; Negative Rash
Neuro: AO x 3
Psych: Calm and Other (flat affect)
Data Reviewed
-
Diagnostic Radiology: Report Reviewed by me
Labs: Labs Reviewed by me
[2023-06-04] MEDS: VITAMIN B-12 1000 MCG PO (12:16)
--- NOTE | 2023-06-04 12:33 | W.PN.NEURO.1 ---
Today's Communication / Plan
-
.
Subjective/Objective
Subjective Data
Date of Service: June 04, 2023
Ms. Chang states that her leg pain is ongoing. No reports of back pain, muscle cramps.
Jovanni MRI wo geeta(06/04/2023)-Severely limited. There are a few scattered foci of increased T2 signal intensity in the deep white matter.
Vit B12 310,
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
PSH: none
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
FH:not contributory
All:NKDA
ROS:Constitutional: Negative. Negative for chills, fever and unexpected weight change.
HENT: Negative for ear pain, hearing loss, tinnitus and trouble swallowing.
Eyes: Negative. Negative for photophobia, pain and visual disturbance.
Respiratory: Negative for cough, choking and shortness of breath.
Cardiovascular: Positive for xerostomia
Gastrointestinal: Negative for abdominal pain and vomiting.
Endocrine: Negative. Negative for cold intolerance.
Genitourinary: Negative for dysuria, flank pain and urgency.
Musculoskeletal: Positive for leg pain
Skin: Negative for rash.
Allergic/Immunologic: Negative. Negative for immunocompromised state.
Neurological: Positive for change in balance, poor memory to falls
Psychiatric/Behavioral: Negative for hallucinations.
�
�
General: Well developed. In no acute distress.
Cardio: Regular rate and rhythm without murmur. Extremities are without cyanosis or edema.
Neuro:
Mental Status: Alert, oriented to person, place, and date.� Normal attention and recall.� Difficulties following complex requests across midline.� Nonfluent.� No eye contact.� No hemineglect
Cranial Nerves: . Pupils are equally round and reactive to light.� EOMs full.� Visual rubio full to confrontation.� No ptosis.� No nystagmus.� V1-V3 intact to light touch and pinprick bilaterally, symmetric.� Face symmetric.� Normal hearing AU.�
The palate elevated well.� SCMs and traps 5/5.� Tongue midline.� No dysarthria.
Motor:� � � � Increased motor tone with cogwheeling rigidity at the wrists.� No pronator or arm drift.� Strength 5/5 throughout. No clonus.
Reflexes: � � � � � � 3+ throughout the upper extremities and knees. Plantar responses flexor bilaterally.
Sensory: � � Normal proprioception at the toes
Coordination: Mild action hand tremor.� No dysmetria
Gait: Deferred
Assessment and Plan:
�
�
I.� Abnormal brain MRI. Differential diagnosis includes demyelinating vs vascular vs inflammatory etiologies
II.� Multifactorial encephalopathy (toxic, metabolic, neurodevelopmental)
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
IV. Cervical/thoracic DJD
�
-Fall precautions.
-Brain, cervical and thoracic MRI without geeta WITH SEDATION
-please check ESR, CRP, Lyme, CHANG, HIV, Mg, D dimers
-PT
-DVT prophylaxis.
�
I personally reviewed all radiology and labs along with past medical records pertinent to current medical problems. Total time spent in patient care is 35 minutes.
Objective Data
Vital Signs
Temp Pulse Resp BP Pulse Ox
36.9 C 55 20 151/88 98
06/04/23 07:00 06/04/23 07:00 06/04/23 07:00 06/04/23 07:00 06/04/23 07:00
Lab Results
06/04/23 05:52
06/04/23 05:52
Sodium 135 mmol/L (135-145) 06/04/23 05:52
Potassium 4.3 mmol/L (3.5-5.1) 06/04/23 05:52
BUN 12 mg/dl (7-17) 06/04/23 05:52
Glucose 88 mg/dl (70-99) 06/04/23 05:52
Calcium 8.5 mg/dl (8.4-10.2) 06/04/23 05:52
Vitamin B12 310 pg/ml (239-931) 06/03/23 13:44
Ur Buprenorphine Negative (Negative) 06/02/23 01:25
Patient Allergies
No Known Allergies Allergy (Verified 06/01/23 23:35)
--- NOTE | 2023-06-04 13:11 | EEGC.RPT ---
Continuous EEG Report
Recording
Start Date of Data Reviewed: 06/03/23
End Date of Data Reviewed: 06/03/23
Done with Video Recording: Yes
Study Sequence: Initiation of Study
Electrocardiogram: Unremarkable
Report
TECHNICAL REMARKS: This is a technically satisfactory eighteen channel record employing 21 disc electrodes applied according to a measured international 10-20 electrode placement system. There were no significant technical difficulties. The study
was done on a [employer] System.
CLINICAL HISTORY: This is a 48 year old woman with encephalopathy. This study was requested to look for epileptiform abnormalities.
MEDICATION: Lorazepam
STUDY DURATION: 27 min, 4 secs
REPORT: At the onset of the EEG, the patient is awake. The background activity consists of 9.5-10 Hz, persistent, posteriorly dominant, moderate amplitude, symmetric and rhythmic activity that is reactive to eye-opening. Anteriorly, it consists of
a mixture of low voltage indeterminate activity and 20-25 Hz, persistent, low amplitude, symmetric and rhythmic activity. Excessive beta activity was present. stepwise intermittent photic stimulation (1-31 Hz) does not induce any abnormalities.
Hyperventilation was not performed. Drowsiness is characterized by low amplitude mixed frequency activity, decreased eye blinking, and muscle artifact.
IMPRESSION: This is a normal awake and drowsy EEG. There is no evidence of focal slowing or epileptiform activity. A normal EEG does not rule out epilepsy. If the clinical picture warrants, a sleep-deprived awake and sleep record may be helpful.
[2023-06-04 13:21] LABS: Erythrocyte Sed Rate 2 mm/hour (0-20)
[2023-06-04 15:00] VITALS: BP 141/70
--- NOTE | 2023-06-04 18:33 | W.PN.UPDATE ---
Update Note
Progress Note Update
Pt chart reviewed - was sleeping when I came, did not awaken pt as not much we would change at this time from a psychiatric perspective. Being evaluated by neuro, has repeat MRI w/ sedation as was unable to stay still for initial MRI. Multiple labs
currently pending.
Continue current medications, may take several weeks for effects of antipsychotic to resolve
[2023-06-04] MEDS: DESYREL 25 MG PO (21:10)
[2023-06-04 23:06] VITALS: BP 149/78
--- NOTE | 2023-06-04 23:41 | PTCARENOTE ---
Although Kathy has been actively using the bathroom, she refused both oral care and washing her body, with either cleansing wipes or soap and water.
[2023-06-05] MEDS: NSS 1000 IV (04:28)
[2023-06-05 06:00] VITALS: BMI 33.3
[2023-06-05 07:00] VITALS: BP 161/91
[2023-06-05 07:13] LABS: Blood Urea Nitrogen 14 mg/dl (7-17); Calcium 9.1 mg/dl (8.4-10.2); Carbon Dioxide 28 mmol/L (22-30); Chloride 99 mmol/L (98-107); Estimated Creatinine Clearance 69 ml/min; Glucose 90 mg/dl (70-99); Potassium 4.1 mmol/L (3.5-5.1); Sodium 135 mmol/L (135-145); eGFR 56.19
[2023-06-05 07:33] LABS: Creatine Phosphokinase 2671 U/L (30-135)
[2023-06-05] MEDS: ATIVAN 0.5 MG PO ×3 (09:41→21:15)
[2023-06-05] MEDS: PAXIL 20 MG PO (09:41)
[2023-06-05] MEDS: VITAMIN B-12 1000 MCG PO (09:41)
[2023-06-05] MEDS: COGENTIN 0.5 MG PO ×4 (09:41→21:15)
[2023-06-05] MEDS: BUSPAR 5 MG PO ×3 (09:41→21:15)
[2023-06-05] MEDS: HEPARIN 5000 UNITS SC ×2 (09:42→19:43)
--- NOTE | 2023-06-05 10:17 | W.PN.HOSP.TC ---
Today's Communication/Plan
-
MRI today
med adjustment per psychiatry
stop further IVF
PT/OT - eventual SNF
Assessment / Plan
Assessment / Plan
HEAD CT
IMPRESSION:
Normal.
CERVICAL SPINE CT
IMPRESSION:
1.). No acute abnormalities.
2).There is degenerative disc disease at C4-5 with moderate loss of disc stature, mild concentric bulging of the intervertebral disc and degenerative spurring of the endplates posteriorly associated with moderate broad-based impingement upon the
anterior aspect of the thecal sac with moderate cord impingement and mild right C5 foraminal stenosis.
3). There is degenerative disc disease at C5-6 with moderate loss of disc stature, mild concentric bulging of the intervertebral disc and mild concentric bulging of the intervertebral disc which is associated with moderate broad-based impingement
upon the anterior aspect of the thecal sac and cervical cord and mild bilateral C6 foraminal stenosis
CT A/P
IMPRESSION:
1). There is no evidence of acute pathology in the abdomen or pelvis
There are no obstructing renal or ureteral calculi.
There is no hydronephrosis or hydroureter.
2). Cholelithiasis
3). Diverticuli are present in the colon with no CT evidence of diverticulitis
MRI 06/03
06/03
IMPRESSION: Severely limited examination due to patient debility to hold still.
There is no acute intracranial process.
There are a few scattered foci of increased T2 signal intensity in the deep white matter. The differential includes chronic small vessel disease/ischemia, vasculitis, a demyelinating process such as multiple sclerosis or Lyme disease and migraines.
Minimal chronic sinus disease.
ASSESSMENT & PLAN
Ms. Kathy Chang is a 48 yo woman with hx significant psychiatric hx, with admissions to mental health facilities over past year brought in by family for increasing decline in physical and mental functioning. She was found to have RAYMUNDO and
rhabdomyolysis.
RAYMUNDO with finding rhabdomyolysis
Progressive weakness out of proportion with metabolic abnormalities
Abnormal UA - WBC not elevated, not suspicious of infection
Rhabdo likley due to muscle contusion s/p fall; sister reports patient lays in bed all day
-renal function back to baseline and CK decreasing
-stop further IVF, patient eating and drinking well
-stop abx - UA with insignificant WBC; urine with asymptomatic bacteriuria; no c/o dysuria
Progressive weakness�
Multifactorial encephalopathy
movement disordered on exam likely drug induced
Significant acute psych issues suspected like major depressive disorder
Denied suicidal thoughts and ideation
-Psych consult appreciated
-meds adjusted- Risperidone stopped; Buspirone decreased, Paxil decreased, Trazodone dosing decreased
-Cogentin initiated
-MRI results from 06/03 motion artifact, see above. further testing per neurology
-neurology consulted, MRI ordered - Brain, cervical and thoracic MRI without geeta WITH SEDATION
Low B12
-replete
DVT Px: SCD
Code: Full code
IP MS
Anticipated Discharge: 24 - 48 hours
Subjective/Interval History
-
Date of Service: June 05, 2023
patient states she's not feeling better
she wants to go home, requesting gingerale
Objective Data
-
Labs:
Laboratory Results
06/05/23
05:56
Sodium 135
Potassium 4.1
Chloride 99
Carbon Dioxide 28
BUN 14
Creatinine 1.2 H
Glucose 90
Calcium 9.1
Vital Signs:
Vital Signs
Temp Pulse Resp BP Pulse Ox
98.7 F 67 16 161/91 93
06/05/23 07:00 06/05/23 07:00 06/05/23 07:00 06/05/23 07:00 06/05/23 09:53
I&O
06/04/23 06/05/23 06/06/23
06:59 06:59 06:59
Intake Total 3880 / 3880 3420 / 3420 1560 / 1560
Balance 3880 / 3880 3420 / 3420 1560 / 1560
Review of Systems
-
History Source: Patient
All other systems: Reviewed and negative
Physical Exam
-
General: No Apparent Distress
HEENT: PERRLA
Respiratory: Clear to Auscultation; Negative Wheezes
Cardiac: Regular Rhythm and S1/S2
GI: Soft and Nontender
Musculoskeletal: No Edema
Skin: Warm and Dry; Negative Rash
Neuro: AO x 3 and Other (+ mild tremors )
Psych: Calm and Other (flat affect)
Data Reviewed
-
Diagnostic Radiology: Report Reviewed by me
Labs: Labs Reviewed by me
--- NOTE | 2023-06-05 11:42 | W.PN.NEURO.1 ---
Today's Communication / Plan
-
.
Subjective/Objective
Subjective Data
Date of Service: June 05, 2023
Date of Service:� June 04, 2023
Ms. Chang reports no complaints. She admits to change in her balance.
Jovanni MRI wo geeta(06/04/2023)-Severely limited. There are a few scattered foci of increased T2 signal intensity in the deep white matter.
Vit B12 310, CRP�18.7 UA cx-E coli>100.000.
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
PSH: none
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
FH:not contributory
All:NKDA
ROS:Constitutional: Negative. Negative for chills, fever and unexpected weight change.
HENT: Negative for ear pain, hearing loss, tinnitus and trouble swallowing.
Eyes: Negative. Negative for photophobia, pain and visual disturbance.
Respiratory: Negative for cough, choking and shortness of breath.
Cardiovascular: Positive for xerostomia
Gastrointestinal: Negative for abdominal pain and vomiting.
Endocrine: Negative. Negative for cold intolerance.
Genitourinary: Negative for dysuria, flank pain and urgency.
Musculoskeletal: Positive for leg pain
Skin: Negative for rash.
Allergic/Immunologic: Negative. Negative for immunocompromised state.
Neurological: Positive for change in balance, poor memory to falls
Psychiatric/Behavioral: Negative for hallucinations.
�
�
General: Well developed. In no acute distress.
Cardio: Regular rate and rhythm without murmur. Extremities are without cyanosis or edema.
Neuro:
Mental Status: Alert, oriented to person, place, and date.� Normal attention and recall.� Difficulties following complex requests across midline.� Nonfluent.� No eye contact.� No hemineglect
Cranial Nerves: . Pupils are equally round and reactive to light.� EOMs full.� Visual rubio full to confrontation.� No ptosis.� No nystagmus.� V1-V3 intact to light touch and pinprick bilaterally, symmetric.� Face symmetric.� Normal hearing AU.�
The palate elevated well.� SCMs and traps 5/5.� Tongue midline.� No dysarthria.
Motor:� � � � Increased motor tone with cogwheeling rigidity at the wrists.� No pronator or arm drift.� Strength 5/5 throughout. No clonus.
Reflexes: � � � � � � 3+ throughout the upper extremities and knees. Plantar responses flexor bilaterally.
Sensory: � � Normal proprioception at the toes
Coordination: Mild action hand tremor.� No dysmetria
Gait: Deferred
Assessment and Plan:
�
�
I.� Abnormal brain MRI.� Differential diagnosis includes demyelinating vs vascular vs inflammatory etiologies
II.� Multifactorial encephalopathy (toxic, metabolic, neurodevelopmental)
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
IV. Cervical/thoracic DJD
V. UTI
�
-Fall precautions.
-Brain, cervical and thoracic MRI without geeta WITH SEDATION
-please follow up Lyme, CHANG,� HIV, Mg
-PT
-Consider starting ciprofloxacin
-DVT prophylaxis.
�
I personally reviewed all radiology and labs along with past medical records pertinent to current medical problems. Total time spent in patient care is 40 minute
Objective Data
Vital Signs
Temp Pulse Resp BP Pulse Ox
37.1 C 67 16 161/91 93
06/05/23 07:00 06/05/23 07:00 06/05/23 07:00 06/05/23 07:00 06/05/23 09:53
Lab Results
06/04/23 05:52
06/05/23 05:56
Sodium 135 mmol/L (135-145) 06/05/23 05:56
Potassium 4.1 mmol/L (3.5-5.1) 06/05/23 05:56
BUN 14 mg/dl (7-17) 06/05/23 05:56
Glucose 90 mg/dl (70-99) 06/05/23 05:56
Calcium 9.1 mg/dl (8.4-10.2) 06/05/23 05:56
Vitamin B12 310 pg/ml (239-931) 06/03/23 13:44
Ur Buprenorphine Negative (Negative) 06/02/23 01:25
Patient Allergies
No Known Allergies Allergy (Verified 06/01/23 23:35)
[2023-06-05 15:00] VITALS: BP 132/65
--- NOTE | 2023-06-05 15:12 | W.PN.UPDATE ---
Update Note
Progress Note Update
report of hematuria per RN. With E. Coli growing in urine will repeat UA and also start antibiotics. Sister updated.
repeat UA in two weeks to monitor hematuria after treatment of UTI
[2023-06-05] MEDS: STERILE WATER FOR INJECTION 10 ML IV ×2 (15:21→15:39)
[2023-06-05] MEDS: ROCEPHIN 1000 MG IV (15:21)
--- NOTE | 2023-06-05 18:45 | PTCARENOTE ---
Pt reports feeling very tired, sleeping frequently then sitting up to eat. Pt walks with steady gait but states she 'feels weak'. Pt's urine contains visible blood, aware, antibiotics started for UTI and repeat urine sent. Pt drinking
copious amounts of fluid throughout the day. New left hand IV infiltrate, swelling present treated with moist heat and elevation. Plan for MRI testing on 06/05, pt will need sedation for best results.
[2023-06-05 18:54] LABS: Urine Albumin Trace (Neg - Trace); Urine Bilirubin Negative (Negative); Urine Character Slightly Cloudy (Clear); Urine Color Red; Urine Glucose Negative (Negative); Urine Ketone Negative (Negative); Urine Leukocyte 2+ (Negative); Urine Nitrite Negative (Negative); Urine Occult Blood 4+ (Negative); Urine Specific Gravity 1.015 (<1.030); Urine Urobilinogen Negative (Neg - 1+)
[2023-06-05 19:21] LABS: Urine Trichomonas Few
[2023-06-05 19:25] LABS: Urine Red Blood Cell 60-70 /HPF (0-2)
[2023-06-05 19:28] LABS: Urine White Cell 16-20 /HPF (0-5)
[2023-06-05] MEDS: DESYREL 25 MG PO (21:15)
[2023-06-05 23:40] VITALS: BP 139/61
[2023-06-06 06:46] LABS: Blood Urea Nitrogen 17 mg/dl (7-17); Calcium 9.9 mg/dl (8.4-10.2); Carbon Dioxide 31 mmol/L (22-30); Chloride 99 mmol/L (98-107); Creatine Phosphokinase 844 U/L (30-135); Estimated Creatinine Clearance 64 ml/min; Glucose 92 mg/dl (70-99); Potassium 4.2 mmol/L (3.5-5.1); Sodium 134 mmol/L (135-145); eGFR 51.04
[2023-06-06 07:55] VITALS: BP 148/74
[2023-06-06] MEDS: VITAMIN B-12 1000 MCG PO (08:11)
[2023-06-06] MEDS: HEPARIN 5000 UNITS SC (08:11)
[2023-06-06] MEDS: PAXIL 20 MG PO (08:11)
[2023-06-06] MEDS: COGENTIN 0.5 MG PO ×4 (08:11→22:34)
[2023-06-06] MEDS: ATIVAN 0.5 MG PO ×3 (08:11→22:34)
[2023-06-06] MEDS: BUSPAR 5 MG PO ×3 (08:11→22:33)
--- NOTE | 2023-06-06 08:22 | W.PN.NEURO.1 ---
Addendum entered and electronically signed by Félix Corrales MD 06/06/23 14:22:
I saw and evaluate the patient reviewed the note by Vera Salamanca agree the findings the following comments:
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
No acute events overnight patient reports feeling tired.
Neurologic examination shows some drowsiness but answers questions appropriately, some difficulty reciting the months of the year backwards no aphasia, cranial nerves normal.
No tremor is seen there is definite bilateral cogwheel rigidity in the wrists and arms and to a lesser extent the legs.
Reflexes brisk 3+ in biceps brachioradialis 2+ patella and Achilles no clonus
Brain MRI reviewed as well as C-spine reviewed.
Brain MRI shows mild amount of T2/FLAIR hyperintensities which are nonspecific
Cervical spine MRI demonstrates degenerative disc disease greatest at C6/C7 with no overt myelopathic signal within the spinal cord
Assessment: Asymptomatic degenerative disc disease, no indications of a thoracic spinal cord dysfunction.
Presumed drug-induced parkinsonism due to antipsychotic with risperidone, optimistic that this will improve over the course of several weeks, did discuss with the patient and her family that sometimes there is not always 100% improvement but fair
likelihood she will have a complete recovery. At this point she does not appear to be having significant anticholinergic side effects
Imaging and clinical course and examination are not consistent with multiple sclerosis. The hyperintensity seen on brain MRI most likely due to ischemic small vessel disease.
Recommendations
-Continue the current dosing of Cogentin for foreseeable future
-Remain off risperidone
-Will need neurology follow-up 4 to 6 weeks as an outpatient
-Encouraged psychiatry outpatient following
Will follow as needed
Original Note:
Today's Communication / Plan
-
.
.
Neuro Assessment/Plan
Assessment
This is a 48-year-old female who presented to on 06/01/23 s/p two falls.
-MRI Brain 3/25/24: There are mild T2 and FLAIR white matter hyperintensities, which are unchanged from MRI of the brain from June 04, 2023. These hyperintensities are nonspecific, with differential considerations discussed above. Please correlate
clinically, and consideration for follow-up MRI. No abnormal enhancement is identified, with no findings to suggest actively demyelinating lesions.
-MRI Cervical Spine 06/06/23: Changes of degenerative disc disease which are greatest at C4-5 and C5-6. There is spinal cord compression and central canal stenosis at these 2 disc space levels, appears slightly greater at C5-6.
Despite the degree of cord compression, no convincing evidence for associated myelopathic signal. Assessment for myelopathic signal may be limited due to motion artifact. If clinical management would hinge depending on demonstration of myelopathic
signal, consideration for a repeat MRI, with attempt to decrease motion, perhaps with medication/sedation. No convincing MR evidence for demyelinating lesions/multiple sclerosis. No focal area of abnormal enhancement.
I.� Parkinsonism.�Likely etiology�drug-induced.
II. Abnormal brain MRI, asymptomatic white matter changes, no concern for demyelination disease.
III.� Multifactorial encephalopathy (toxic, metabolic, neurodevelopmental).
IV. Cervical DJD C4-C6 with spinal cord compression, asymptomatic.
V. UTI
Plan
-UTI treatment per primary team.
-Fall precautions.
-PT/OT evaluations.
-Medication adjustments/Cogentin dosing per psychiatry. Symptoms will take several days to improve after Risperidone cessation.
-DVT prophylaxis.
-Can follow-up with Ortho as an outpatient regarding cervical spine DDD.
Subjective/Objective
Subjective Data
Date of Service: June 06, 2023
No acute events overnight. Patient reports feeling tired, otherwise offers no complaints. She denies any headache, dizziness, speech/swallow difficulty, nausea, numbness, weakness, chest pain, palpitations, and shortness of breath.
Objective Data
Vital Signs
Temp Pulse Resp BP Pulse Ox
98.4 F 63 16 148/74 95
06/06/23 07:55 06/06/23 07:55 06/06/23 07:55 06/06/23 07:55 06/06/23 07:55
Lab Results
06/04/23 05:52
06/06/23 05:48
Sodium 134 mmol/L (135-145) L 06/06/23 05:48
Potassium 4.2 mmol/L (3.5-5.1) 06/06/23 05:48
BUN 17 mg/dl (7-17) 06/06/23 05:48
Glucose 92 mg/dl (70-99) 06/06/23 05:48
Calcium 9.9 mg/dl (8.4-10.2) 06/06/23 05:48
Vitamin B12 310 pg/ml (239-931) 06/03/23 13:44
Ur Buprenorphine Negative (Negative) 06/02/23 01:25
Patient Allergies
No Known Allergies Allergy (Verified 06/01/23 23:35)
Review of Systems
-
History Source: Patient
Constitutional: Fatigue
EENT: Negative Blurry Vision, Decreased Vision or Swallowing Difficulty
Respiratory: Negative Cough or Trouble Breathing
Cardiac: Negative Chest Pain or Palpitations
Genitourinary: Negative Dysuria or Difficulty Voiding
Musculoskeletal: Negative Arthralgias or Myalgias
Neuro: Negative Dizzy, Headache, Weakness, Numbness, Ataxia or Speech Problem
Physical Exam
-
General: No Apparent Distress
Eyes: No Ptosis and PERRLA
HEENT: Normocephalic and Atraumatic
Neck: Full Range of Motion
Respiratory: No Dyspnea
GI: Non-distended
Extremities: No Clubbing, No Cyanosis and No Edema
Psych: Other (withdrawn)
Extended Neurological Exam
Mood & Affect: Other (withdrawn)
Attention Span & Concentration: Lethargic and Closes Eyes after Stimulation
Memory: Unremarkable (AAOx3)
Tremor: Hand Tremor Absent and Head Tremor Absent
Involuntary Movement: None
Speech: Quality Unremarkable, Quantity Unremarkable and Rate of Production Unremarkable
Cranial Nerve II: Left Eye: Pupillary Reactivity Unremarkable and Visual Palma Intact; Negative Pupillary Size Unremarkable (pupils 5 BR)
Cranial Nerve II: Right Eye: Pupillary Reactivity Unremarkable and Visual Palma Intact; Negative Pupillary Size Unremarkable (pupils 5 BR)
Cranial Nerves III, IV, : Extraocular Movement: Extraocular Movement Full in all Directions
Cranial Nerve V: Facial Sensation: Intact to Light Touch
Cranial Nerve VII: Facial Symmetry: Normal Facial Symmetry
Cranial Nerve VIII: Hearing: Unremarkable Hearing to Normal Conversational Volume
Cranial Nerves IX, X: Palate Movement: Palate Elevation Symmetric
Cranial Nerve XI: Shoulder Shrug: Unremarkable
Cranial Nerve XII: Tongue Protusion: Midline
Muscle Strength, Overall: Full Throughout
Muscle Bulk & Tone: Increased Tone (+Cogwheel rigidity in BUE.)
Pronator Drift: No Drift in Upper Extremities and No Drift in Lower Extremities
Deep Tendon Reflexes: Unremarkable Throughout (no clonus)
Coordination: [id number] Testing Unremarkable
Babinski Sign: Absent Bilaterally
Data Reviewed
-
CT Head: Report Reviewed and Image Reviewed
CT Cervical Spine: Report Reviewed and Image Reviewed
MRI Head: Report Reviewed and Image Reviewed
MRI Cervical Spine: Report Reviewed and Image Reviewed
EEG: Report Reviewed
Labs: Report Reviewed
Reviewed with: Physician and Patient
Medications
-
Active Medications
Generic Name Dose Route Start Last Admin
Trade Name Freq PRN Reason Stop Dose Admin
Benztropine Mesylate 0.5 mg 06/03/23 16:00 06/06/23 12:20
Benztropine 0.5 Mg Tablet PO 07/01/23 15:59 0.5 mg
QID ROB Administration
Buspirone HCl 5 mg 06/02/23 16:00 06/06/23 08:11
Buspirone 5 Mg Tablet PO 06/30/23 15:59 5 mg
TID ROB Administration
Ceftriaxone Sodium 1,000 mg 06/05/23 16:00 06/05/23 15:21
Ceftriaxone 1000 Mg / 10 Ml Vial IV 1,000 mg
Q24H ROB Administration
Cyanocobalamin 1,000 mcg 06/04/23 11:00 06/06/23 08:11
Cyanocobalamin 1,000 Mcg Tablet PO 07/02/23 10:59 1,000 mcg
DAILY ROB Administration
Enoxaparin Sodium 40 mg 06/06/23 18:00
Enoxaparin Sodium 40 Mg/0.4 Ml Syringe SC 07/04/23 17:59
QPM ROB
Lorazepam 0.5 mg 06/02/23 16:00 06/06/23 08:11
Lorazepam 0.5 Mg Tablet PO 06/30/23 15:59 0.5 mg
TID ROB Administration
Lorazepam 1 mg 06/06/23 08:35 06/06/23 10:23
Lorazepam 2 Mg/Ml Vial IV 06/06/23 20:59 1 mg
ONCE PRN Administration
PRE-MRI
Paroxetine HCl 20 mg 06/04/23 08:00 06/06/23 08:11
Paroxetine 20 Mg Tablet PO 07/02/23 07:59 20 mg
DAILY ROB Administration
Sodium Chloride 0 flush 06/02/23 04:00
Sodium Chloride 0.9% (Flush) Syringe IV 06/30/23 03:59
PER PROTOCOL ROB
Sodium Chloride 0.5 ml 06/06/23 09:00 06/06/23 10:24
Nss (Pf) 10 Ml Vial For Ativan 1 Mg Dose IV 06/06/23 20:59 0.5 ml
ONCE PRN Administration
TO DILUTE IV ATIVAN
Sterile Water 10 ml 06/05/23 16:00 06/05/23 15:39
Sterile Water For Injection 10 Ml Vial IV 07/03/23 15:59 10 ml
Q24H ROB Administration
Trazodone HCl 25 mg 06/02/23 22:00 06/05/23 21:15
Trazodone 50 Mg Tablet PO 06/30/23 21:59 25 mg
HS ROB Administration
Home Medications
Medication Instructions Recorded
trazodone 50 mg tablet 50 mg PO HS Sleep 11/09/22
buspirone 15 mg tablet 15 mg PO TID Mental Health/Anxiety 06/02/23
levonorgestrel-ethinyl estradiol 1 tab PO DAILY control 06/02/23
0.1 mg-20 mcg tablet (Vienva)
paroxetine HCl 20 mg tablet 20 mg PO BID Mental Health/Anxiety 06/02/23
risperidone 1 mg tablet 1 mg PO TID Mental Health/Anxiety 06/02/23
[2023-06-06] MEDS: ATIVAN 1 MG IV (10:23)
[2023-06-06] MEDS: NSS (PRESERVATIVE FREE) 0.5 ML IV (10:24)
[2023-06-06 12:39] LABS: HIV Combo Negative (Negative)
--- NOTE | 2023-06-06 14:58 | W.PN.UPDATE ---
Update Note
Progress Note Update
Pt seen and reviewed with hospitalist. Pt was off floor for MRI earlier; now back but still sedated from Ativan. Pt woke and gave limited answers, offered no complaints, does not show overt EPS at present. Risperidone was stopped, Paxil was
tapered; pt is on Ativan and Cogentin. Outpatient psych diagnosis is unclear.
Imp: unspecified mood d/o; R/o OCD. Recent decline in functioning, etiology unclear
Rec: continue current psych meds; will review outpatient record at [facility], assess further when less sedated
will follow
--- NOTE | 2023-06-06 14:59 | CM ---
CM following for d/c planning
PT/OT recs - SNF
Spoke with pts sister Fidelia about recommendations
Given website Medicare.gov and asked to review SNF choices. Instructed to choose 3-4 facilities.
Fidelia reported she would discuss info with her parents and call CM with choices in AM
CM will follow for d/c needs
Plan - snf when medically stable
--- NOTE | 2023-06-06 15:13 | W.PN.HOSP.TC ---
Today's Communication/Plan
-
see outlined plan
Assessment / Plan
Assessment / Plan
Assessment:
RAYMUNDO on CKD stage 3b with finding of rhabdomyolysis related to muscle contusion post fall
- RAYMUNDO improved; cr near baseline
- CPK improving
Progressive weakness�
Multifactorial encephalopathy
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
Significant acute psych issues suspected like major depressive disorder
Denied suicidal thoughts and ideation
- Neuro/Psych following
- Risperdal stopped
- BuSpar decreased from 15mg TID to 5mg TID
- Trazodone decreased from 50mg to 25mg HS
- Paxil decreased from 20mg BID to 20mg Daily
- Ativan TID added
- Congentin added
- Brain MRI shows mild amount of T2/FLAIR hyperintensities which are nonspecific
- Cervical spine MRI demonstrates degenerative disc disease greatest at C6/C7 with no overt myelopathic signal within the spinal cord
- PT/OT ordered
Hypovitaminosis B12
- replete
DVT ppx: SCDs
Code: Full
Anticipated Discharge: > 48 hours
Subjective/Interval History
-
Date of Service: June 06, 2023
resting comfortably, still somewhat sedated post Ativan for MRI
Objective Data
-
Labs:
Laboratory Results
06/06/23
05:48
Sodium 134 L
Potassium 4.2
Chloride 99
Carbon Dioxide 31 H
BUN 17
Creatinine 1.3 H
Glucose 92
Calcium 9.9
Vital Signs:
Vital Signs
Temp Pulse Resp BP Pulse Ox
98.4 F 63 16 148/74 95
06/06/23 07:55 06/06/23 07:55 06/06/23 07:55 06/06/23 07:55 06/06/23 07:55
I&O
06/05/23 06/06/23 06/07/23
06:59 06:59 06:59
Intake Total 0 / 0 2009
Balance 3419 / 3419
Physical Exam
-
General: No Apparent Distress
HEENT: Normocephalic and Atraumatic
Respiratory: Negative Wheezes or Rales
Cardiac: Regular Rhythm and S1/S2
GI: Soft
Psych: Calm
Data Reviewed
-
Total Time Spent with Patient (in minutes): 42
Labs: Labs Reviewed by me
[2023-06-06 15:36] VITALS: BP 139/78
[2023-06-06 15:51] LABS: Angiotensin-1-converting Enzym 30 U/L (16-85)
[2023-06-06] MEDS: STERILE WATER FOR INJECTION 10 ML IV (16:30)
[2023-06-06] MEDS: ROCEPHIN 1000 MG IV (16:30)
[2023-06-06] MEDS: LOVENOX 40 MG SC (17:08)
[2023-06-06] MEDS: DESYREL 25 MG PO (22:33)
[2023-06-06 23:30] VITALS: BP 126/67
[2023-06-07 00:22] VITALS: BMI 32.0
[2023-06-07 02:11] LABS: Lyme Disease DNA by PCR Not Detected; Lyme Source Serum
[2023-06-07 07:00] VITALS: BP 136/70
[2023-06-07 07:12] LABS: ALT (SGPT) 94 U/L (0-35); AST (SGOT) 90 U/L (14-36); Alkaline Phosphatase 66 U/L (38-126); Blood Urea Nitrogen 20 mg/dl (7-17); Calcium 9.7 mg/dl (8.4-10.2); Carbon Dioxide 32 mmol/L (22-30); Chloride 98 mmol/L (98-107); Creatine Phosphokinase 384 U/L (30-135); Estimated Creatinine Clearance 58 ml/min; Glucose 87 mg/dl (70-99); Potassium 4.2 mmol/L (3.5-5.1); Sodium 133 mmol/L (135-145); Total Bilirubin 1.1 mg/dl (0.2-1.3); Total Protein 6.7 g/dl (6.3-8.2)
[2023-06-07] MEDS: BUSPAR 5 MG PO ×3 (08:48→21:22)
[2023-06-07] MEDS: COGENTIN 0.5 MG PO ×4 (08:48→21:22)
[2023-06-07] MEDS: VITAMIN B-12 1000 MCG PO (08:48)
[2023-06-07] MEDS: ATIVAN 0.5 MG PO ×3 (08:48→21:22)
[2023-06-07] MEDS: PAXIL 20 MG PO (08:48)
--- NOTE | 2023-06-07 10:19 | CM ---
Addendum entered by Marcela Odell 06/07/23 14:34:
Received call from pts sister Fidelia with choices for snf
Referrals sent in [facility]
Plan - snf when medically stable
Original Note:
CM following for d/c planning
Called pts Fidelia to obtain SNF choices
Given acute rehab facilities. Reviewed diff between snf and acute rehab - sister will review snf choices and return call with options
Plan - SNF(TBD) when medically stable
--- NOTE | 2023-06-07 12:51 | W.PN.HOSP.TC ---
Today's Communication/Plan
-
continue UTI tx/Rocephin
monitor symptoms with adjusted psych meds
DC planning to SNF
Assessment / Plan
Assessment / Plan
Assessment:
RAYMUNDO on CKD stage 3b with finding of rhabdomyolysis related to muscle contusion post fall
- RAYMUNDO improved; cr near baseline
- CPK improving
Progressive weakness�
Multifactorial encephalopathy
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
Significant acute psych issues suspected like major depressive disorder
Denied suicidal thoughts and ideation
- Neuro/Psych following
- Risperdal stopped
- BuSpar decreased from 15mg TID to 5mg TID
- Trazodone decreased from 50mg to 25mg HS
- Paxil decreased from 20mg BID to 20mg Daily
- Ativan TID added
- Cogentin added
- Brain MRI shows mild amount of T2/FLAIR hyperintensities which are nonspecific
- Cervical spine MRI demonstrates degenerative disc disease greatest at C6/C7 with no overt myelopathic signal within the spinal cord
- PT/OT ordered- SNF planned
E. Coli UTI
- on Rocephin, day 3/
Elevated LFTs likely related to Rocephin
- will monitor, no RUQ pain
Hypovitaminosis B12
- replete
DVT ppx: SCDs
Code: Full
Anticipated Discharge: > 48 hours
Subjective/Interval History
-
Date of Service: June 07, 2023
no concerns
Objective Data
-
Labs:
Laboratory Results
06/07/23
05:45
Sodium 133 L
Potassium 4.2
Chloride 98
Carbon Dioxide 32 H
BUN 20 H
Creatinine 1.4 H
Glucose 87
Calcium 9.7
Total Bilirubin 1.1
AST 90 H
ALT 94 H
Alkaline Phosphatase 66
Vital Signs:
Vital Signs
Temp Pulse Resp BP Pulse Ox
97.3 F 58 20 136/70 94
06/07/23 07:00 06/07/23 07:00 06/07/23 07:00 06/07/23 07:00 06/07/23 07:00
I&O
06/06/23 06/07/23 06/08/23
06:59 06:59 06:59
Intake Total 2009 3840 / 3840
Balance 2009 3840 / 3840
Physical Exam
-
General: No Apparent Distress
HEENT: Normocephalic and Atraumatic
Respiratory: Clear to Auscultation; Negative Wheezes or Rales
Cardiac: Regular Rhythm and S1/S2
GI: Soft and Nontender
Genito-urinary: No Costovertebral Tender
Musculoskeletal: No Cyanosis
Neuro: AO x 3
Hematologic / Lymphatic: No Lymphadenopathy
Psych: Calm
Data Reviewed
-
Total Time Spent with Patient (in minutes): 45
Labs: Labs Reviewed by me
--- NOTE | 2023-06-07 14:05 | W.PN.UPDATE ---
Update Note
Progress Note Update
Pt seen, [facility]. Pt has long hx of dx OCD, receiving treatment since her mid-teens. Pt noted to be on Paxil for years, at doses up to 80 mg per day in the past. Pt also noted to be on [facility] ACT team for 15
years in the past- full details of past history are not in the current EHR. Pt has recently been prescribed Paxil 20 mg BID, Buspar 15 mg TID, Trazodone 50 mg HS, Vistaril 25 mg prn. Pt was tried on Abilify in 2021, then changed to Risperidone in
Dec 2021, for persistent repetitive and impulsive behaviors. Risperidone was increased to 1 mg TID at the beginning of last month/Apr. 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
with her repetitive behaviors- an ongoing problem.
Pt resting in bed, alert, calm, making good eye contact. No signs of EPS. Pt denies anxiety or depression, asks about when she will be going home. No signs of psychosis or agitation. Insight appears limited. Pt reports her parents assist with
medications, father fills her pill box.
Imp: Unspecified Obsessive behavior/OCD by history. Adverse reaction to Risperidone, improving.
Rec:� continue current psych meds. Pt appears stable to return to Outpatient treatment at [facility] when medically cleared.
�� � will follow
[2023-06-07 15:00] VITALS: BP 145/79
[2023-06-07 15:00] LABS: Syphilis/T. pallidum Ab Reflex Negative (Negative)
[2023-06-07] MEDS: ROCEPHIN 1000 MG IV (15:49)
[2023-06-07] MEDS: STERILE WATER FOR INJECTION 10 ML IV (15:49)
[2023-06-07] MEDS: LOVENOX 40 MG SC (17:27)
[2023-06-07 19:05] LABS: ANA, IgG Reflex to HEp-2 Detected (None Detected)
[2023-06-07] MEDS: DESYREL 25 MG PO (21:22)
[2023-06-07 23:10] VITALS: BP 146/77
[2023-06-08 03:11] LABS: Myeloperoxidase Antibody 0 AU/mL (0-19); Serine Protease-3, IgG 8 AU/mL (0-19)
--- NOTE | 2023-06-08 03:28 | DOWNTIME ---
There was a Moving Off Campus Client Chief Operator Downtime on 06/08/2023 from 0100 to 06/08/2023 at 0322. Downtime documentation of patient's care, including medication administrations, has been reconciled in the electronic record per guidelines. Refer to the
patient's paper chart under the miscellaneous tab to see printed paper medication records and downtime forms.
[2023-06-08 06:45] LABS: Hematocrit 45.4 % (37.0-47.0); Mean Corpuscular Hgb 28.2 pg (27.0-31.0); Mean Corpuscular Volume 85.5 fL (81.0-99.0); Mean Platelet Volume 9.7 fL (7.4-10.4); Platelet Count 228 10^3/uL (130-400); Red Blood Cell Count 5.31 10^6/uL (4.20-5.40); Red Cell Dist. Width 13.3 % (11.5-14.5); White Blood Cell Count 9.1 10^3/uL (4.8-10.8)
[2023-06-08 07:30] VITALS: BP 123/65
[2023-06-08 07:39] LABS: ALT (SGPT) 76 U/L (0-35); AST (SGOT) 59 U/L (14-36); Alkaline Phosphatase 67 U/L (38-126); Blood Urea Nitrogen 24 mg/dl (7-17); Carbon Dioxide 32 mmol/L (22-30); Chloride 96 mmol/L (98-107); Estimated Creatinine Clearance 58 ml/min; Glucose 90 mg/dl (70-99); Potassium 4.4 mmol/L (3.5-5.1); Sodium 136 mmol/L (135-145); Total Bilirubin 0.8 mg/dl (0.2-1.3); Total Protein 6.5 g/dl (6.3-8.2)
[2023-06-08] MEDS: PAXIL 20 MG PO (08:12)
[2023-06-08] MEDS: VITAMIN B-12 1000 MCG PO (08:12)
[2023-06-08] MEDS: BUSPAR 5 MG PO ×3 (08:12→21:00)
[2023-06-08] MEDS: COGENTIN 0.5 MG PO ×4 (08:12→21:00)
[2023-06-08] MEDS: ATIVAN 0.5 MG PO ×3 (08:12→21:00)
[2023-06-08 10:40] VITALS: BP 159/103; PULSE 117
--- NOTE | 2023-06-08 12:05 | W.PN.UPDATE ---
Addendum entered and electronically signed by Cleopatra Damon MD 06/08/23 13:00:
spoke to sister who was under the impression that shelter is not being recommended after she spoke with adult protective caseworker. i did review the chart and according to PT and dr randolph whom i spoke to this am it is snf that is being recommended. told
sister that i will talk to dr randolph to make sure everyone is on the same page here. then it will be the family who will need to hopefully persuade her to go to snf . i will also set up an appt with an md psychiatrist at [facility] for the future.
Original Note:
Update Note
Progress Note Update
patient seen chart reviewed. spoke with nursing. the patient appears less parkinsonized at this point although on exam there is still some cogwheeling. defer to neuro re interpretation of white matter densitites seen on mri. the patient is better
able to attend to a conversation at this point but still noted a tendency to perseverate and insist upon things going her way eg refusal to go to snf and desire for dc 'today'. i will talk to her sister as requested by dr randolph this afternoon. she
agreed for the moment to stay in hospital. did not make any changes in her current medication i will be getting her an appt at [facility] for out pt followup with an md as requested by her sister. also have ordered PT consult to get patient up and
moving.
--- NOTE | 2023-06-08 13:28 | W.PN.HOSP.TC ---
Today's Communication/Plan
-
continue UTI tx
continue efforts for SNF placement
Assessment / Plan
Assessment / Plan
Assessment:
RAYMUNDO on CKD stage 3b with finding of rhabdomyolysis related to muscle contusion post fall
- RAYMUNDO improved; cr near baseline
- CPK improving
Progressive weakness�
Multifactorial encephalopathy
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
Significant acute psych issues suspected like major depressive disorder
Denied suicidal thoughts and ideation
- Neuro/Psych following
- Risperdal stopped
- BuSpar decreased from 15mg TID to 5mg TID
- Trazodone decreased from 50mg to 25mg HS
- Paxil decreased from 20mg BID to 20mg Daily
- Ativan TID added
- Cogentin added
- Brain MRI shows mild amount of T2/FLAIR hyperintensities which are nonspecific
- Cervical spine MRI demonstrates degenerative disc disease greatest at C6/C7 with no overt myelopathic signal within the spinal cord
- PT/OT ordered- SNF planned
E. Coli UTI
- on Rocephin, day 4/
Elevated LFTs likely related to Rocephin
- will monitor, no RUQ pain
Hypovitaminosis B12
- replete
Hyponatremia improved
- monitor BMP
DVT ppx: SCDs
Code: Full
Anticipated Discharge: 24 - 48 hours
Subjective/Interval History
-
Date of Service: June 08, 2023
No overnight events
patient demanding DC today
Objective Data
-
Labs:
Laboratory Results
06/08/23
06:24
WBC 9.1
Hgb 15.0
Hct 45.4
Plt Count 228
Sodium 136
Potassium 4.4
Chloride 96 L
Carbon Dioxide 32 H
BUN 24 H
Creatinine 1.4 H
Glucose 90
Calcium 10.0
Total Bilirubin 0.8
AST 59 H
ALT 76 H
Alkaline Phosphatase 67
Vital Signs:
Vital Signs
Temp Pulse Resp BP Pulse Ox
97.9 F 60 16 123/65 95
06/08/23 07:30 06/08/23 07:30 06/08/23 07:30 06/08/23 07:30 06/08/23 07:30
I&O
06/07/23 06/08/23 06/09/23
06:59 06:59 06:59
Intake Total 3840 / 3840 1800 / 1800 480 / 480
Balance 3840 / 3840 1800 / 1800 480 / 480
Physical Exam
-
HEENT: Normocephalic and Atraumatic
Respiratory: Negative Wheezes or Rales
Cardiac: Regular Rhythm and S1/S2
GI: Soft and Nontender
Genito-urinary: No Costovertebral Tender
Musculoskeletal: No Edema
Neuro: AO x 3
Hematologic / Lymphatic: No Lymphadenopathy
Psych: Calm
Data Reviewed
-
Total Time Spent with Patient (in minutes): 40
Labs: Labs Reviewed by me
[2023-06-08] MEDS: STERILE WATER FOR INJECTION 10 ML IV (14:33)
[2023-06-08] MEDS: ROCEPHIN 1000 MG IV (14:34)
[2023-06-08 15:45] VITALS: BP 149/84
[2023-06-08] MEDS: LOVENOX 40 MG SC (17:47)
[2023-06-08] MEDS: DESYREL 25 MG PO (21:00)
[2023-06-08 23:15] VITALS: BP 134/72
[2023-06-09 06:00] VITALS: BMI 31.8
[2023-06-09 06:32] LABS: Blood Urea Nitrogen 20 mg/dl (7-17); Carbon Dioxide 31 mmol/L (22-30); Chloride 100 mmol/L (98-107); Estimated Creatinine Clearance 63 ml/min; Glucose 90 mg/dl (70-99); Potassium 4.1 mmol/L (3.5-5.1); Sodium 137 mmol/L (135-145); eGFR 51.04
[2023-06-09 07:00] VITALS: BP 151/94
[2023-06-09] MEDS: COGENTIN 0.5 MG PO ×4 (08:39→21:45)
[2023-06-09] MEDS: BUSPAR 5 MG PO (08:39)
[2023-06-09] MEDS: ATIVAN 0.5 MG PO ×3 (08:39→21:45)
[2023-06-09] MEDS: PAXIL 20 MG PO (08:39)
[2023-06-09] MEDS: VITAMIN B-12 1000 MCG PO (08:39)
[2023-06-09 08:45] LABS: ANA, HEp-2, IgG Detected (<1:80)
--- NOTE | 2023-06-09 09:35 | W.PN.HOSP.TC ---
Addendum entered and electronically signed by Rufus Kruse MD 06/09/23 13:51:
This patient will likely require less than 30 days for SNF services as her symptoms and behaviors are stable.
Patient without symptoms as medication doses were adjusted down (including stopping Risperidone)
Original Note:
Today's Communication/Plan
-
await SNF placement
will d/w psych if patient has capacity to refuse SNF
Assessment / Plan
Assessment / Plan
Assessment:
RAYMUNDO on CKD stage 3b with finding of rhabdomyolysis related to muscle contusion post fall
- RAYMUNDO improved; cr near baseline
- CPK improving
Progressive weakness�
Multifactorial encephalopathy
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
Significant acute psych issues suspected like major depressive disorder
Denied suicidal thoughts and ideation
- Neuro/Psych following
- Risperdal stopped
- BuSpar decreased from 15mg TID to 5mg TID
- Trazodone decreased from 50mg to 25mg HS
- Paxil decreased from 20mg BID to 20mg Daily
- Ativan TID added
- Cogentin added
- Brain MRI shows mild amount of T2/FLAIR hyperintensities which are nonspecific
- Cervical spine MRI demonstrates degenerative disc disease greatest at C6/C7 with no overt myelopathic signal within the spinal cord
- PT/OT ordered- SNF planned
E. Coli UTI
- complete Rocephin course
Elevated LFTs likely related to Rocephin
- improved
Hypovitaminosis B12
- replete
Hyponatremia improved
- monitor BMP
DVT ppx: SCDs
Code: Full
Anticipated Discharge: 24 - 48 hours
Subjective/Interval History
-
Date of Service: June 09, 2023
patient desires to go home at discharge, this clashes with family desire for SNF
Objective Data
-
Labs:
Laboratory Results
06/09/23
05:51
Sodium 137
Potassium 4.1
Chloride 100
Carbon Dioxide 31 H
BUN 20 H
Creatinine 1.3 H
Glucose 90
Calcium 10.0
Vital Signs:
Vital Signs
Temp Pulse Resp BP Pulse Ox
98.0 F 59 18 151/94 95
06/09/23 07:00 06/09/23 07:00 06/09/23 07:00 06/09/23 07:00 06/09/23 07:00
I&O
06/08/23 06/09/23 06/10/23
06:59 06:59 06:59
Intake Total 1800 / 1800 1440 / 1440
Balance 1800 / 1800 1440 / 1440
Physical Exam
-
General: No Apparent Distress
HEENT: Normocephalic and Atraumatic
Respiratory: Negative Wheezes or Rales
Cardiac: Regular Rhythm and S1/S2
GI: Soft and Nontender
Genito-urinary: No Costovertebral Tender
Neuro: AO x 3
Hematologic / Lymphatic: No Lymphadenopathy
Psych: Calm
Data Reviewed
-
Total Time Spent with Patient (in minutes): 42
Labs: Labs Reviewed by me
--- NOTE | 2023-06-09 13:12 | CM ---
Addendum entered by Marcela Odell 06/09/23 14:19:
Spoke with sister Fidelia - tomorrow would be better as she is working today
Per Fidelia, she has spoke with Paty palma [facility] to discuss pts out patient needs when d/c'ed from SNF
Updates sent in Care Port
Sister will transport
[facility] tomorrow
Sister will transport
Original Note:
Pt for snf - facilities chosen by family declined
Spoke with Lyubov, liaison for [facility] and [facility]
Discussed pt and her needs - referral sent in [facility] Port
Per Lyubov - can offer bed at [facility]
Discussed with pts sister Fidelia - agreed with [facility] - had questions about transport and time for admission
CM will contact Lyubov with questions and f/u with pts sister Fidelia
[2023-06-09] MEDS: ROCEPHIN 1000 MG IV (13:41)
[2023-06-09] MEDS: STERILE WATER FOR INJECTION 10 ML IV (13:45)
--- NOTE | 2023-06-09 14:55 | W.PN.UPDATE ---
Update Note
Progress Note Update
patient seen chart reviewed. spoke with nursing. the patient in some ways is improving. she is much more mobile. she was very cooperative w pt as they helped her with ambulation. she still is unsteady and not very compliant eg when told she needs
assist eg with getting to bathroom. she continues to be ambivalent about going to snf. she has told staff (nursing) she will go ...with me she just keeps saying 'i don't want to go..' perseveration is an issue with her. i kept reminding her she
already told me that and explained why it is in her best interest to go. i don't think i would say she is incompetent to make this decision. i do not really see her as an imminent risk to come to harm and do not feel she is commitable. i would
advise her family to tell her she MUST go to snf if she wants to eventually come home to live. will stop buspar as it is not clear it is doing anything at this point.
[2023-06-09 15:00] VITALS: BP 132/80
[2023-06-09] MEDS: LOVENOX 40 MG SC (17:01)
[2023-06-09] MEDS: DESYREL 25 MG PO (21:46)
[2023-06-09 23:05] VITALS: BP 148/73
[2023-06-10 07:09] LABS: ANA Pattern Speckled
[2023-06-10 08:05] VITALS: BP 159/94
[2023-06-10] MEDS: VITAMIN B-12 1000 MCG PO (08:28)
[2023-06-10] MEDS: COGENTIN 0.5 MG PO ×2 (08:28→12:06)
[2023-06-10] MEDS: ATIVAN 0.5 MG PO (08:28)
[2023-06-10] MEDS: PAXIL 20 MG PO (08:28)
--- NOTE | 2023-06-10 09:58 | CM ---
Addendum entered by Melissa Cano 06/10/23 12:15:
IMM benefit explained and signed
Met with patient's sister, Fidelia, at the bedside; explained that DC Summary will be faxed to [facility] [employer] [facility] as requested
Addendum entered by Melissa Cano 06/10/23 11:54:
Per sister's request, contacted patient's Learning And Development Director, Paty Santiago @ [facility] via phone; was told that Paty is off today. Discharge Summary faxed to [facility] # [phone]. Patient asked to sign record release.
Original Note:
Plan: Discharge to [facility] today; sister, Fidelia, will provide transport to the facility
Report #: [phone]
Fax #: [phone]
--- NOTE | 2023-06-10 11:20 | W.PN.HOSP.TC ---
Today's Communication/Plan
-
dc to SNF
Assessment / Plan
Assessment / Plan
Assessment:
RAYMUNDO on CKD stage 3b with finding of rhabdomyolysis related to muscle contusion post fall
- RAYMUNDO improved; cr near baseline
- CPK improving
Progressive weakness�
Multifactorial encephalopathy
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
Significant acute psych issues suspected like major depressive disorder
Denied suicidal thoughts and ideation
- Neuro/Psych following
- Risperdal stopped
- BuSpar stopped
- Trazodone decreased from 50mg to 25mg HS
- Paxil decreased from 20mg BID to 20mg Daily
- Ativan TID added
- Cogentin added
- Brain MRI shows mild amount of T2/FLAIR hyperintensities which are nonspecific
- Cervical spine MRI demonstrates degenerative disc disease greatest at C6/C7 with no overt myelopathic signal within the spinal cord
- PT/OT ordered- SNF planned
E. Coli UTI
- complete Rocephin course
Elevated LFTs likely related to Rocephin
- improved
Hypovitaminosis B12
- replete
Hyponatremia improved
- monitor BMP
DVT ppx: SCDs
Code: Full
More than 30 minutes spent in discharge including
Final examination of the patient
Summarizing hospital stay
Instructions for continuing care to all relevant caregivers
Preparation of discharge records, prescriptions, and referral forms
Total time spent (in minutes): 42
Anticipated Discharge: Today
Subjective/Interval History
-
Date of Service: June 10, 2023
for DC today
Objective Data
-
Vital Signs:
Vital Signs
Temp Pulse Resp BP Pulse Ox
97.9 F 70 16 159/94 95
06/10/23 08:05 06/10/23 08:05 06/10/23 08:05 06/10/23 08:05 06/10/23 08:48
I&O
06/09/23 06/10/23 06/11/23
06:59 06:59 06:59
Intake Total 1440 / 1440 1500 / 1500
Balance 1440 / 1440 1500 / 1500
Physical Exam
-
General: No Apparent Distress
HEENT: Normocephalic and Atraumatic
Respiratory: Negative Wheezes or Rales
Cardiac: Regular Rhythm and S1/S2
GI: Soft and Nontender
Genito-urinary: No Costovertebral Tender
Neuro: AO x 3
Hematologic / Lymphatic: No Lymphadenopathy
Psych: Calm
Data Reviewed
-
Total Time Spent with Patient (in minutes): 42
Labs: Labs Reviewed by me
--- NOTE | 2023-06-10 11:27 | W.DS.TRANS ---
DC Summary - Embedded Software [employer]
-
Discharge Instructions:
Discharge Diagnosis/Procedures drug induced Parkinsons
Diet Regular
Activity As tolerated
Bathing Restrictions None
Others Tests repeat urinalysis in 2 weeks post UTI treatment
Other Services PT,OT
Instructions:
Stand-Alone Forms:
Changes to Home Medications: Yes
Discharge Medications:
DC Medications w/original date entered in [facility]
levonorgestrel-ethinyl estradiol 0.1 mg-20 mcg tablet (Vienva) 1 tab PO DAILY control 06/02/23
benztropine 0.5 mg tablet 0.5 mg PO QID #60 tabs 06/10/23
cyanocobalamin (vitamin B-12) 1,000 mcg tablet 1,000 mcg PO DAILY #100 tabs 06/10/23
lorazepam 0.5 mg tablet 0.5 mg PO TID #20 tabs 06/10/23
paroxetine HCl 20 mg tablet 20 mg PO DAILY #30 tabs 06/10/23
trazodone 50 mg tablet 25 mg (1/2 x 50 mg) PO HS #15 tabs 06/10/23
Home Medication Changes
Paxil and Trazodone decreased
Cogentin and Ativan added
Buspar and Risperdal stopped
Pending Results: No
Total time spent discharging patient (in min): 42
--- NOTE | 2023-06-10 11:27 | W.PN.UPDATE ---
Addendum entered and electronically signed by Cleopatra Damon MD 06/10/23 11:55:
spoke to sister to apprise her of the appointment at [facility] as listed below.
Original Note:
Update Note
Progress Note Update
spoke with nursing. patient is to be dc to [facility] today. have appt for her at [facility] on june 26 at [address] josh hale. sister had asked for an MD to prescribe for her. will call sister to apprise.
== END 2023-06-10 12:35 | DRG 56 ==
LOC: 3 WEST ACU 03:00
PROVIDERS: Student in an Organized Health Care Education/Training Program; ADMITTING PHYSICIAN Internal Medicine; ATTENDING PHYSICIAN Internal Medicine; CONSULT PHYSICIAN Psychiatry & Neurology Neurology; EMERGENCY PHYSICIAN Emergency Medicine; OTHER PHYSICIAN Psychiatry & Neurology Psychiatry
DX: G21.19 Other drug induced secondary parkinsonism (principal); G92.8 Other toxic encephalopathy; N17.9 Acute kidney failure, unspecified; N39.0 Urinary tract infection, site not specified; E87.1 Hypo-osmolality and hyponatremia; M62.82 Rhabdomyolysis; T43.595A Adverse effect of other antipsychotics and neuroleptics, initial encounter; B96.20 Unspecified Escherichia coli [E. coli] as the cause of diseases classified elsewhere; E56.9 Vitamin deficiency, unspecified; N18.32 Chronic kidney disease, stage 3b; E66.9 Obesity, unspecified; Z68.31 Body mass index [BMI] 31.0-31.9, adult
CPT/HCPCS: 51701; 70450; 70551; 70553; 72125; 72156; 74176; 80048; 80053; 80143; 80179; 80306; 81003; 81015; 82077; 82140; 82164; 82550; 82607; 82962; 83516; 83735; 84443; 84703; 85025; 85027; 85652; 86038; 86039; 86140; 86780; 87040; 87077; 87086; 87186; 87389; 87476; 93005; 95816; 96374; 97116; 97162; 97166; 97530; 97535; 99285; A9575